=== PATIENT | male | born 1970 | race Caucasian/White ===

== ENCOUNTER 2020-03-02 05:44 | Inpatient (IN) ==
--- NOTE | 2020-02-16 11:02 | PAT Medication Instructions ---
Medication Instructions Date of Service February 16, 2020 Home Medications aspirin 81 mg PO HS bupropion HCl [Wellbutrin XL] 300 mg PO QAM cholecalciferol (vitamin D3) [Vitamin D3] 1,000 unit PO QAM cyanocobalamin (vitamin B-12) [Vitamin B-12] 1,000 mcg PO QAM cyclobenzaprine 10 mg PO TID gabapentin 600 mg PO TID insulin aspart U-100 [Novolog PenFill U-100 Insulin] 7 unit SUBCUT BIDM insulin glargine [Basaglar KwikPen U-100 Insulin] 60 unit SUBCUT QAM levothyroxine [Synthroid] 25 mcg PO QAM losartan 25 mg PO QAM meloxicam 15 mg PO QAM metoprolol succinate 12.5 mg PO BID multivitamin 1 cap PO QAM pantoprazole [Protonix] 40 mg PO HS pregabalin [Lyrica] 75 mg PO TID rivaroxaban [Xarelto] 20 mg PO PM rosuvastatin [Crestor] 40 mg PO HS insulin glargine [Basaglar KwikPen U-100 Insulin] 25 unit SUBCUT QPM trazodone 100 mg PO HS semaglutide [Ozempic] 0.5 mg SUBCUT WK sucralfate [Carafate] 10 ml PO TID Continue as directed semaglutide [Ozempic] 0.5 mg SUBCUT WK (just do not take AM of surgery) ASK your surgeon for instructions meloxicam 15 mg PO QAM ASK your prescriber and surgeon rivaroxaban [Xarelto] 20 mg PO PM aspirin 81 mg PO HS DO NOT take the morning of surgery sucralfate [Carafate] 10 ml PO TID losartan 25 mg PO QAM multivitamin 1 cap PO QAM cholecalciferol (vitamin D3) [Vitamin D3] 1,000 unit PO QAM cyanocobalamin (vitamin B-12) [Vitamin B-12] 1,000 mcg PO QAM cyclobenzaprine 10 mg PO TID insulin aspart U-100 [Novolog PenFill U-100 Insulin] 7 unit SUBCUT BIDM Take morning of surgery With a small sip of water, OTHERWISE NOTHING TO EAT OR DRINK AFTER MIDNIGHT: metoprolol succinate 12.5 mg PO BID pregabalin [Lyrica] 75 mg PO TID bupropion HCl [Wellbutrin XL] 300 mg PO QAM gabapentin 600 mg PO TID levothyroxine [Synthroid] 25 mcg PO QAM Take evening before surgery sucralfate [Carafate] 10 ml PO TID pantoprazole [Protonix] 40 mg PO HS pregabalin [Lyrica] 75 mg PO TID rosuvastatin [Crestor] 40 mg PO HS insulin glargine [Basaglar KwikPen U-100 Insulin] 25 unit SUBCUT QPM trazodone 100 mg PO HS cyclobenzaprine 10 mg PO TID gabapentin 600 mg PO TID insulin aspart U-100 [Novolog PenFill U-100 Insulin] 7 unit SUBCUT BIDM Insulin Dependent Diabetic Patients * Test your blood sugar the morning of surgery * If Blood Sugar is GREATER THAN 150, take HALF of your regular dose of: insulin glargine [Basaglar KwikPen U-100 Insulin] (30 units) * If Blood Sugar is LESS THAN 150, DO NOT TAKE ANY: insulin glargine [Basaglar KwikPen U-100 Insulin] 60 unit SUBCUT QAM Other Notes If you have any questions please call us at [phone] or [phone] or [phone] or [phone]
--- NOTE | 2020-02-17 10:23 | Anesthesiology Consultation ---
Date of Service February 17, 2020 Assessment & Plan (1) Encounter for pre-operative examination: Chart Review Chart Review: Acceptable Risk for Surgery (pending Covid testing ) and Patient seen in Pre Admission Testing - Check BSG AM DOS Per PAT appt 02/17/20, no travel to high risk/endemic areas. Educated on getting Covid order three days prior- given copy of surgeon order. Pt educated on importance of social distancing, self quarantining and wearing a mask if needs to go into public. Teaching & Discussion Pre-Anesthesia Teaching/Discussion Notes: Instructed NPO after midnight before surgery,except medications with 15 cc of water. Medication instructions provided according to the PAT guidelines. History Surgery Operation Date: 03/02/20 10:25 Proposed Procedures p C5-C6 Anterior Cervical Discectomy Fusion, Spinal Cord Monitoring - Carson Thompson DO Height/Weight Height: 6 ft Weight: 133.9 kg Allergies Allergy/AdvReac Type Severity Reaction Status Date / Time risperidone Allergy Severe TONGUE Verified 02/11/20 08:53 SWELLING. Medications Home Medications Medication Instructions Recorded Confirmed Last Taken aspirin 81 mg PO HS 08/03/19 02/11/20 08/20/19 22:00 bupropion HCl [Wellbutrin XL] 300 mg PO QAM 08/03/19 02/11/20 08/21/19 05:00 cholecalciferol (vitamin D3) 1,000 unit PO QAM 08/03/19 02/11/20 08/20/19 08:00 [Vitamin D3] cyanocobalamin (vitamin B-12) 1,000 mcg PO QAM 08/03/19 02/11/20 08/20/19 08:00 [Vitamin B-12] cyclobenzaprine 10 mg PO TID 08/03/19 02/11/20 08/20/19 22:00 gabapentin 600 mg PO TID 08/03/19 02/11/20 08/21/19 05:00 insulin aspart U-100 [Novolog 7 unit SUBCUT BIDM 08/03/19 02/11/20 08/20/19 18:00 PenFill U-100 Insulin] insulin glargine [Basaglar KwikPen 65 unit SUBCUT QAM 08/03/19 02/17/20 08/20/19 08:00 U-100 Insulin] levothyroxine [Synthroid] 25 mcg PO QAM 08/03/19 02/11/20 08/21/19 05:00 losartan 25 mg PO QAM 08/03/19 02/11/20 08/20/19 08:00 meloxicam 15 mg PO QAM 08/03/19 02/11/20 08/20/19 08:00 metoprolol succinate 12.5 mg PO BID 08/03/19 02/11/20 08/20/19 22:00 multivitamin 1 cap PO QAM 08/03/19 02/11/20 08/20/19 08:00 pantoprazole [Protonix] 40 mg PO DAILY 08/03/19 02/17/20 08/20/19 22:00 pregabalin [Lyrica] 75 mg PO TID 08/03/19 02/11/20 08/21/19 05:00 rivaroxaban [Xarelto] 20 mg PO PM 08/03/19 02/11/20 08/16/19 rosuvastatin [Crestor] 40 mg PO HS 08/03/19 02/11/20 08/20/19 22:00 insulin glargine [Basaglar KwikPen 60 unit SUBCUT QPM 11/04/19 02/17/20 Unknown U-100 Insulin] trazodone 100 mg PO HS 11/04/19 02/11/20 Unknown semaglutide [Ozempic] 0.5 mg SUBCUT WK 02/11/20 02/11/20 Unknown sucralfate [Carafate] 10 ml PO TID 02/11/20 02/11/20 Unknown Iron Supplement 02/17/20 Unknown ascorbic acid (vitamin C) See Rx Instructions .ROUTE .COMPLEX 02/17/20 02/17/20 Unknown fluvoxamine 100 mg PO HS 02/17/20 02/17/20 Unknown hydroxyzine pamoate [Vistaril] 50 mg PO BID 02/17/20 02/17/20 Unknown Past Medical History Medical History Anemia on iron supplements Anxiety Asthma Uses ProAir once/week. Prescribed Advair but cannot afford it due to insurance issue. Stable and controlled Bipolar disorder Chronic obstructive pulmonary disease Stable and controlled CVA (cerebral vascular accident) 2007 - MEMORY ISSUES- FOLLOWS WITH PCP Depression Diabetes mellitus, type 2 Improved GERD (gastroesophageal reflux disease) WELL CONTROLLED AND STABLE Glaucoma History of DVT (deep vein thrombosis) 2010 - RLE - ON XARELTO - UNK CAUSE - NO ISSUES SINCE ON XARELTO History of pulmonary embolism 2010 - ON XARELTO - NO ISSUES SINCE ON XARELTO Hyperlipidemia Hypertension Hypothyroidism Osteoarthritis Sleep apnea CPAP Spinal stenosis Exercise / Class Metabolic Activity II 4-5 Yardwork/Stairs/Walk up hill (one flight stairs - no chest pain or SOB ) Past Family History Family History Mother Family history of diabetes mellitus Sister Family history of diabetes mellitus Brother Family hx of colon cancer Past Surgical History Surgical History History of arthroscopy of shoulder BL History of cardiac cath 2014 - [facility] [place] - NO STENTS 2009 - [place] - NO STENTS History of cholecystectomy History of colonoscopy History of esophagogastroduodenoscopy (EGD) History of gastric bypass History of lumbar surgery 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 History of umbilical hernia repair History of uvulopalatopharyngoplasty Hx of nasal septoplasty Past Anesthesia History No Hx of Anesthesia Complications and No Family Hx of Anesthesia Complications History of PONV No Hx of PONV and No Hx of Motion Sickness Social History Smoking Status: Former smoker tobacco type: cigarettes Smoking cigarettes per day: h/o 1ppd Do You Dip or Chew Tobacco: No Smoking End Date: 2-3 years ago Hx Alcohol Use: No Hx Substance Use: No substance use type: does not use Review of Systems Chronic chest tightness x years secondary to asthma Patient denies chest pain, shortness of breath, dyspnea on exertion, cough, wheezing, palpitations. No hx of seizures, [place]. . No hx of blood transfusions Physical Exam Vital Signs VITALS BP 125/85 P 90 TEMP 97.7 SP02 96% RESP 16 Constitutional + morbidly obese; no acute distress ENMT Mouth: no TMJ clicking Thyromental Distance: > or= 3.5 Finger Breadths (3.5) Mallampati Class: I Full dentures top and bottom Did instruct patient to shave facial hair Neck + short neck, + thick neck and + limited neck extension Respiratory normal respiratory effort; no respiratory distress Auscultation: lungs clear to auscultation bilaterally; no wheezes Cardiovascular Rate/Rhythm: regular rate and regular rhythm Heart Sounds: no murmur Vessels: no carotid bruit Musculoskeletal Spine: + pain with cervical ROM Neurologic moves all extremities Psychiatric Orientation: alert Testing Laboratory Results 02/17/20 10:36 02/17/20 12:02 PT 12.4 Seconds (9.0-12.0) H 02/17/20 10:36 INR 1.2 (0.9-1.1) H 02/17/20 10:36 APTT 31.5 Seconds (21.0-31.0) H 02/17/20 10:36 Hemoglobin A1c 7.3 % (4.5-5.6) H 02/17/20 10:36 Urine Color Dark Yellow 02/17/20 10:36 Urine Appearance Clear (Clear) 02/17/20 10:36 Urine pH 5.5 (4.5-7.5) 02/17/20 10:36 Ur Specific [place] 1.026 (1.000-1.030) 02/17/20 10:36 Urine Protein Negative (Negative) 02/17/20 10:36 Urine Glucose (UA) Negative (Negative) 02/17/20 10:36 Urine Ketones Trace (Negative) H 02/17/20 10:36 Urine Nitrite Negative (Negative) 02/17/20 10:36 Ur Leukocyte Esterase Negative (Negative) 02/17/20 10:36 Blood Type A Positive 02/17/20 10:36 Antibody Screen NEGATIVE 02/17/20 10:36 Electrocardiogram Date: 08/06/19 Findings: + NSR @ (74) Chest X-Ray Date: 07/08/19 Findings: + NAD Echocardiogram Date: 06/23/18 EF: 55% LV Function: normal Other Findings: + LVH (mild/concentric ) Valvular Disease: + no significant valvular disease LA- mildly dilated. Stress Test Date: 06/23/18 Type: nuclear Lexiscan EKG negative for myocardial ischemia. No significant rest or stress- induced myocardial perfusion defects. No evidence of myocardial ischemia or infarct. Normal gated MPI wall motion and low normal EF. LVEF =48%.
[2020-02-17 11:01] LABS: Basophils # (auto) 0.02 K/uL (0-0.2); Basophils % (auto) 0.3 %; Eosinophils # (auto) 0.08 K/uL (0-0.5); Eosinophils % (auto) 1.2 %; Hemoglobin 17.1 g/dL (14.0-18.0); Immature Granulocytes # (auto) 0.01 K/uL (0.00-0.02); Immature Granulocytes % (auto) 0.1 %; Lymphocytes # (auto) 2.13 K/uL (1.2-3.4); Lymphocytes % (auto) 31.6 %; Mean Corpuscular Hemoglobin 31.6 pg (25-34); Mean Corpuscular Hgb Conc 35.6 g/dL (32-36); Mean Corpuscular Volume 88.7 fL (80-100); Mean Platelet Volume 10.2 fL (7.4-10.4); Monocytes % (auto) 8.9 %; Neutrophils % (auto) 57.9 %; Platelet Count 176 K/uL (130-400); RDW Coefficient of Variation 12.4 % (11.5-14.5); RDW Standard Deviation 39.5 fL (36.4-46.3); Red Blood Count 5.41 M/uL (4.7-6.1); White Blood Count 6.74 K/uL (4.8-10.8)
[2020-02-17 11:07] LABS: Appearance Urine Clear (Clear); Bilirubin Urine Negative (Negative); Blood Urine Negative (Negative); Color Urine Dark Yellow; Glucose Urine UA Negative (Negative); Ketones Urine Trace (Negative); Leukocyte Esterase Urine Negative (Negative); Nitrite Urine Negative (Negative); Protein Urine Negative (Negative); Specific Gravity Urine 1.026 (1.000-1.030); Urobilinogen Urine Positive (Negative); pH Urine 5.5 (4.5-7.5)
[2020-02-17 11:19] LABS: INR 1.2 (0.9-1.1); Partial Thromboplastin Ratio 1.1; Partial Thromboplastin Time 31.5 Seconds (21.0-31.0); Prothrombin Time 12.4 Seconds (9.0-12.0)
[2020-02-17 12:36] LABS: Estimated Average Glucose 163 mg/dl; Hemoglobin A1C 7.3 % (4.5-5.6)
[2020-02-17 13:58] LABS: BUN Creatinine Ratio 10.7 (10-20); Calcium 9.2 mg/dl (8.5-10.1); Creatinine Clr Calc Pharmacy 113.5 ml/min; Est GFR (African American) 90.6; Est GFR (Non-African American) 78.2; Potassium 4.3 mmol/L (3.5-5.1)
[2020-03-02] MEDS ORDERED: CeleBREX 200 MG CAP PO SCH (06:00)
[2020-03-02] MEDS ORDERED: LR 15ML/HR IV SCH (06:00)
[2020-03-02] MEDS ORDERED: ACETAMINOPHEN 500 MG TAB PO SCH (06:00)
[2020-03-02] MEDS ORDERED: GABAPENTIN 900 MG DOSE PO SCH (06:00)
[2020-03-02] MEDS ORDERED: CEFAZOLIN 3000MG 72.5 ML IV SCH (06:00)
[2020-03-02] MEDS ORDERED: HYDROmorphone INJ 2 MG/ML SYR/VIAL ONE (07:03)
[2020-03-02] MEDS ORDERED: ONDANSETRON INJ 2 MG/ML 2 ML VIAL ONE (07:03)
[2020-03-02] MEDS ORDERED: fentaNYL citrate 100 MCG/2 ML VIAL ONE (07:03)
[2020-03-02] MEDS ORDERED: MIDAZOLAM HCL 1 MG/ML 2ML VIAL ONE (07:03)
[2020-03-02] MEDS ORDERED: LIDOCAINE HCL 2% 2 ML VIAL/AMP(20MG/ML) INFIL ONE (07:03)
[2020-03-02] MEDS ORDERED: PROPOFOL IV EMULSION 10 MG/ML 20 ML VIAL IV ONE (07:03)
[2020-03-02] MEDS ORDERED: BACITRACIN INJ 50,000 UNIT VIAL ONE (07:15)
--- NOTE | 2020-03-02 07:30 | History & Physical Bridge Note ---
Date of Service March 02, 2020 History & Physical Bridge Note I have examined the patient, reviewed the History & Physical and in the interval since the performance of the History & Physical I have noted the following changes of clinical significance: no changes noted
--- NOTE | 2020-03-02 07:31 | History & Physical Report ---
Date of Service March 02, 2020 Assessment & Plan (1) Cervical stenosis of spinal canal: C5-C6 anterior cervical discectomy and fusion Present on Admission?: Yes History of Present Illness Chief Complaint: Neck and arm pain Primary Care Provider: Marco A Lira DO This is a 49-year-old male who presents with chronic persistent neck and arm pain after failing course of nonoperative care is here for surgical intervention. Allergies Allergy/AdvReac Type Severity Reaction Status Date / Time risperidone Allergy Severe TONGUE Verified 03/02/20 06:04 SWELLING. Home Medications Home Medications Medication Instructions Recorded Confirmed Type aspirin 81 mg PO HS 08/03/19 03/02/20 History bupropion HCl [Wellbutrin XL] 300 mg PO QAM 08/03/19 03/02/20 History cholecalciferol (vitamin D3) 1,000 unit PO QAM 08/03/19 03/02/20 History [Vitamin D3] cyanocobalamin (vitamin B-12) 1,000 mcg PO QAM 08/03/19 03/02/20 History [Vitamin B-12] cyclobenzaprine 10 mg PO TID 08/03/19 03/02/20 History gabapentin 600 mg PO TID 08/03/19 03/02/20 History insulin aspart U-100 [Novolog 7 unit SUBCUT BIDM 08/03/19 03/02/20 History PenFill U-100 Insulin] insulin glargine [Basaglar KwikPen 65 unit SUBCUT QAM 08/03/19 03/02/20 History U-100 Insulin] levothyroxine [Synthroid] 25 mcg PO QAM 08/03/19 03/02/20 History losartan 25 mg PO QAM 08/03/19 03/02/20 History meloxicam 15 mg PO QAM 08/03/19 03/02/20 History metoprolol succinate 12.5 mg PO BID 08/03/19 03/02/20 History multivitamin 1 cap PO QAM 08/03/19 03/02/20 History pantoprazole [Protonix] 40 mg PO DAILY 08/03/19 03/02/20 History pregabalin [Lyrica] 75 mg PO TID 08/03/19 03/02/20 History rivaroxaban [Xarelto] 20 mg PO PM 08/03/19 03/02/20 History rosuvastatin [Crestor] 40 mg PO HS 08/03/19 03/02/20 History insulin glargine [Basaglar KwikPen 60 unit SUBCUT QPM 11/04/19 03/02/20 History U-100 Insulin] trazodone 100 mg PO HS 11/04/19 03/02/20 History semaglutide [Ozempic] 0.5 mg SUBCUT WK 02/11/20 03/02/20 History sucralfate [Carafate] 10 ml PO TID 02/11/20 03/02/20 History Iron Supplement 02/17/20 History ascorbic acid (vitamin C) See Rx Instructions .ROUTE .COMPLEX 02/17/20 03/02/20 History fluvoxamine 100 mg PO HS 02/17/20 03/02/20 History hydroxyzine pamoate [Vistaril] 50 mg PO BID 02/17/20 03/02/20 History Past Med/Surg History Medical History Anemia on iron supplements Anxiety Asthma Uses ProAir once/week. Prescribed Advair but cannot afford it due to insurance issue. Stable and controlled Bipolar disorder Chronic obstructive pulmonary disease Stable and controlled CVA (cerebral vascular accident) 2007 - MEMORY ISSUES- FOLLOWS WITH PCP Depression Diabetes mellitus, type 2 Improved GERD (gastroesophageal reflux disease) WELL CONTROLLED AND STABLE Glaucoma History of DVT (deep vein thrombosis) 2010 - RLE - ON XARELTO - UNK CAUSE - NO ISSUES SINCE ON XARELTO History of pulmonary embolism 2010 - ON XARELTO - NO ISSUES SINCE ON XARELTO Hyperlipidemia Hypertension Hypothyroidism Osteoarthritis Sleep apnea CPAP Spinal stenosis Surgical History History of arthroscopy of shoulder BL History of cardiac cath 2015 - [facility] [place] - NO STENTS 2009 - [place] - [place] STENTS History of cholecystectomy History of colonoscopy History of esophagogastroduodenoscopy (EGD) History of gastric bypass History of lumbar surgery 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 History of umbilical hernia repair History of uvulopalatopharyngoplasty Hx of nasal septoplasty Family History Mother Family history of diabetes mellitus Sister Family history of diabetes mellitus Brother Family hx of colon cancer Social History Preferred Language: Belarusian Communication Ability: Effective Real Estate Developer Required: No Beliefs That Will Affect Care: None Current Living Situation: Spouse Feels Safe at Home: Yes Safety Concerns: Feels Safe At This Time Smoking Status: Former smoker Tobacco Type: cigarettes ; Cigarettes Per Day: h/o 1ppd ; Do You Dip or Chew Tobacco: No ; Smoking End Date: 2-3 years ago ; Second Hand Exposure: No ; Tobacco Cessation Education Requested by Patient: No Hx Alcohol Use: No Hx Substance Use: No Physical Exam Physical Exam: Patient is alert and oriented neurologically intact. Heart regular rate and rhythm. Lungs clear to auscultation. Results & Data Vital Signs (Past 12 Hours) Vital Signs Temp Pulse Resp BP Pulse Ox 03/02/20 06:13 36.6 C 86 18 125/83 99
[2020-03-02] MEDS ORDERED: HYDROmorphone INJ 1 MG/ML SYRINGE IV PRN ×2 (07:52→11:03)
[2020-03-02] MEDS ORDERED: ATROPINE SULFATE 0.1 MG/ML 10ML SYR IV PRN (07:52)
[2020-03-02] MEDS ORDERED: ONDANSETRON INJ 2 MG/ML 2 ML VIAL IV PRN ×2 (07:52→11:03)
[2020-03-02] MEDS ORDERED: ePHEDrine sulfate 50 MG/ML AMP IV PRN (07:52)
[2020-03-02] MEDS ORDERED: fentaNYL citrate 100 MCG/2 ML VIAL IV PRN (07:52)
[2020-03-02] MEDS ORDERED: FLOSEAL HEMOSTATIC MATRIX 10ML TOP ONE (09:02)
--- NOTE | 2020-03-02 09:13 | Operative Report ---
Post Operative Report Pre & Post Diagnosis Operation Date: 03/02/20 07:45 Pre-Op Diagnosis: Cervical Spinal Stenosis Post-Op Diagnosis: Cervical Spinal Stenosis I identified the patient and participated in the time-out.: Yes Procedure Operation Date: 03/02/20 07:45 Actual Procedures #1 anterior cervical discectomy with bilateral foraminotomies C5-C6. #2 anterior cervical arthrodesis C5-C6. #3 placement of Spira titanium cage 8 mm height filled with DBM at C5-C6. #4 application of menendez plate and screws across C5-C6. Surgeon Carson Thompson, DO Regional Sales Coordinator Payal Soto Estimated Blood Loss 10 Findings See Below The patient is 6 foot 1 inches tall weighing over 131 kg with a BMI of 38.5. The patient's body habitus did create significant technical difficulty throughout the procedure including positioning exposure and the procedure itself adding at least 50% increase to the operative time. Specimens None Indications This is a 49-year-old male who presents with above-mentioned diagnosis after failing extensive course of nonoperative care is here for the above-mentioned procedure. Description of Procedure Patient was met with preoperatively case discussed all questions addressed at that point patient was taken back to the operative suite underwent intubation placed in supine position Dawood table head [place] head ordered. All bony prominences well-padded eyes inspected to ensure no external pressure placed upon the. This point the anterior cervical spine was prepped and draped in normal sterile fashion. With the assistance of fluoroscopy identified the C5-C6 level and a transverse incision was placed along the right anterior aspect of the cervical spine overlying this region. Sharp dissection with assistance of bipolar electrocautery was performed down to and exposing the anterior cervical spine and C5-C6. Self-retaining retractors placed. Then performed a complete discectomy at C5-6 out to the uncovertebral joints bilaterally. [place] distracting pins were used to assist in visualization. I removed all posterior annular fibers longitudinal ligament bilateral foraminotomies performed for complete decompression. The endplates were then burred to subcortical any bone and an 8 mm titanium spiral cage filled with DBM tapped in position. Distracting apparatus was removed and a menendez plate and screws applied with the assistance of fluoroscopy. The incision was then copiously irrigated to explore no damage surrounding structures remaining bleeding. A 10 round OLGA drain inserted. The incision was then closed with 2-0 Vicryl in a fashion of 4 Monocryl for final skin closure. Steri-Strips sterile dressing placed. Patient waken taken PACU stable addition. Please note Payal Soto was present at the entire procedure involved the patient positioning complex portions of the surgery and final skin closure. Lastly spinal cord monitoring was utilized that the procedure no changes noted. I attest to the content of the Intraoperative Record and any orders documented therein. Any exceptions are noted below.
--- NOTE | 2020-03-02 09:27 | Fluoroscopy Report ---
FL cervical 2-3V CLINICAL HISTORY: ACDF C5-C6 COMPARISON STUDY: None. FLUOROSCOPY TIME: 12 seconds. FINDINGS: 2 fluoroscopic spot images of the cervical spine demonstrate anterior cervical discectomy a nd fusion at C5-C6. The hardware appears intact. An endotracheal tube is noted. IMPRESSION: Fluoroscopy provided for C5-C6 ACDF. ACT 112: Negative or not required by law. Electronically signed by: Ki Valencia M.D. 03/02/2020 9:25 AM
[2020-03-02] MEDS ORDERED: ROCURONIUM BROMIDE 10 MG/ML 5 ML VIAL IV ONE (09:36)
[2020-03-02] MEDS ORDERED: SUCCINYLCHOLINE CHLORIDE 20 MG/ML 10 ML VIAL IV ONE (09:36)
[2020-03-02] MEDS ORDERED: NEOSTIGMINE METHYLSULFATE 1 MG/ML 10ML VIAL ONE (09:41)
[2020-03-02] MEDS ORDERED: GLYCOPYRROLATE 0.2 MG/ML VIAL ONE (09:41)
--- NOTE | 2020-03-02 10:07 | Anesthesiology Progress Note ---
Date of Service March 02, 2020 Anesthesia Post Procedure Vital Signs Vital Signs: Temp Pulse Pulse Resp BP Pulse Ox 03/02/20 10:00 81 15 135/88 95 03/02/20 09:50 80 18 140/91 94 03/02/20 09:40 79 20 131/87 98 03/02/20 09:30 82 23 134/89 95 03/02/20 09:21 36 C L 83 13 148/89 H 94 03/02/20 06:13 36.6 C 86 18 125/83 99 Transfer of Care Handoff Completed per policy Notes Mental Status: alert / awake / arousable and participated in evaluation Patient Amnestic to Procedure: Yes Nausea / Vomiting: adequately controlled Pain: adequately controlled Airway Patency, RR, SpO2: stable & adequate BP & HR: stable & adequate Hydration State: stable & adequate Anesthetic Complications: no major complications apparent and Pt Satisfied with anesthetic care
[2020-03-02] MEDS ORDERED: TRAMADOL HCL 50 MG TABLET PO PRN (11:03)
[2020-03-02] MEDS ORDERED: DO NOT ADMINISTER FLU VACCINE PRN (11:03)
[2020-03-02] MEDS ORDERED: ALUMINUM/MAGNESIUM SUSP 30 ML UDC PO PRN (11:03)
[2020-03-02] MEDS ORDERED: NALOXONE HCL 0.4 MG/1 ML VIAL/CARP IV PRN (11:03)
[2020-03-02] MEDS ORDERED: DO NOT ADMINISTER PNEUMOCOCCAL VACCINE PRN (11:03)
[2020-03-02] MEDS ORDERED: SOD PHOSPHATE/SOD BIPHOSPHATE ENEMA 132 ML BTL PR PRN (11:03)
[2020-03-02] MEDS ORDERED: PROMETHAZINE HCL 12.5 MG in SODIUM CHLORIDE 0.9% 50 ML IV PRN (11:03)
[2020-03-02] MEDS ORDERED: HYDROmorphone INJ 0.5 MG/0.5 ML SYR IV PRN (11:03)
[2020-03-02] MEDS ORDERED: MAGNESIUM HYDROXIDE SUSP 30 ML UDC PO PRN (11:03)
[2020-03-02] MEDS ORDERED: RACEPINEPHRINE 2.25% NEBU SOLN 0.5 ML VIAL INH PRN (11:03)
[2020-03-02] MEDS ORDERED: DEXAMETHASONE SOD PHOSPHATE 8 MG in SYRINGE 0 ML IV PRN (11:03)
[2020-03-02] MEDS ORDERED: METOCLOPRAMIDE HCL INJ 5 MG/ML 2 ML VIAL IV PRN (11:03)
[2020-03-02] MEDS ORDERED: LORazepam 0.5 MG TAB PO PRN (11:03)
[2020-03-02] MEDS ORDERED: ONDANSETRON 4 MG OD TAB PO PRN (11:03)
[2020-03-02] MEDS ORDERED: FAMOTIDINE 20 MG TAB PO PRN (11:03)
[2020-03-02] MEDS ORDERED: LORazepam 0.5 MG/1 ML VIAL IV PRN (11:03)
[2020-03-02] MEDS ORDERED: PHARMACY GLYCEMIC MGMT CONSULT PRN (11:14)
[2020-03-02] MEDS ORDERED: INSULIN GLARGINE SOLOSTAR 100 UNITS/ML 3 ML PEN SC SCH ×2 (11:30→21:00)
--- NOTE | 2020-03-02 11:37 | Pharmacy Report ---
Pharmacy Glycemic Short Note 2 - Date of Service March 02, 2020 - Glycemic Short BSG Results (Last 24 hours): 03/02/20 03/02/20 06:05 09:24 POC Glucose 136 H 87 OUTPATIENT ANTIDIABETIC REGIMEN: * Basaglar 65 units SQ qAM, 60 units SQ qPM * Novolog TID with meals * 16 units with breakfast, 20 units with lunch, 25 units with dinner * HbA1c: 7.3% (02/17/20) ASSESSMENT: * Mr Mg is a 49yo diabetic male POD 0 s/p spinal procedure with Dr Thompson this morning. * It does not appear as though patient received any steroids intra-operatively. * Pt has been ordered a clear liquid diet post-op. PLAN FOR INPATIENT GLYCEMIC CONTROL: * Hold outpatient oral diabetes medications * Basal insulin * Lantus 50 units SQ BID * Bolus insulin * NovoLog per scale ACHS or Q6hrs while NPO * Goal Range: Low 110 mg/dL - High 140 mg/dL * Correction Factor: 10 mg/dL/unit * Nutritional / Prandial insulin per carb ratio of 1 unit per 4 grams CHO consumed PLAN FOR DISCHARGE: * Patient's A1c (7.3%) indicates adequate glycemic control as an outpatient. * Expect that pt may resume home regimen on discharge, as long as he does not report having episodes of hypoglycemia.
[2020-03-02] MEDS ORDERED: GLUCOSE 40% GEL 15 GM TUBE PO PRN (11:45)
[2020-03-02] MEDS ORDERED: CARBOHYDRATES FOR HYPOGLYCEMIA PO PRN (11:45)
[2020-03-02] MEDS ORDERED: GLUCOSE 10 TABS/TUBE PO PRN (11:45)
[2020-03-02] MEDS ORDERED: DEXTROSE 50% 50 ML SYRINGE IV PRN (11:45)
[2020-03-02] MEDS ORDERED: GLUCAGON FOR INJ 1 MG VIAL IM PRN (11:45)
--- NOTE | 2020-03-02 12:01 | Consultation ---
Date of Consultation March 02, 2020 Assessment & Plan (1) S/P spinal surgery: Post op day# 0 S/P ACDF C5-C6 by Dr Thompson Post op pain controlled EBL#10ml -pain management per ortho -wound management per ortho -PT/OT as appropriate -DVT prophylaxis per ortho -bowel regimen -monitor H&H for acute blood loss anemia; pre-op Hgb: 17 (2) Hypertension: -Continue losartan with holding parameters (3) History of pulmonary embolism: HISTORY OF DEEP VEIN THROMBOSIS H/O DVT and PE in 2010. On Xarelto since Xarelto on hold 5 days pre-op -No SOB, CP, LE pain or edema reported -Hold Xarelto at this time -follow ultrasound of lower extremities (4) Diabetes mellitus, type 2: A1c: 7.3 on 02/17/2020. Follows with endocrinology -Hold home insulin and ozempic -BS -Basal bolus insulin. Glycemic pharmacy on board, appreciate assistance with management -Pt currently on liquid diet, monitor BSGs closely (5) Hyperlipidemia: -Continue statin (6) Hypothyroidism: -Continue levothyroxine (7) Sleep apnea: CPAP HS -Will continue CPAP HS per ortho spine recommendations (8) Depression: Anxiety -Continue buspirone, fluvoxamine (9) Obesity: BMI: 38. S/P gastric bypass in 2012 DVT Prophylaxis -SCDs Disposition per primary service Follows with Dr Marco A Lira in [place], [place] for routine care Pt was seen and care coordinated with Dr Liz. See addendum Pt will be followed by Dr Marquez starting 03/03/2020 Thank you for this consultation. We will follow the patient with you during their hospital stay. You can reach a member of the [facility] Hospitalist Team 25/03 via pager @ [phone]. Supervising Physician Co-Signing Physician Notes I, Dr. Nahun Liz, have seen and examined the patient Beny Ortegaison with physician certified surgical assistant and would like to comment on exam Physical Exam General: speaking in full sentences Neck: in brace with OLGA drain of anterior neck with some blood collection in the drain Pulmonary: no crackles appreciated on anterior auscultation or wheezing, on room air Cardiac: regular rate Abdomen: soft, nontender Extremities/Neurological: moves all extremities, he reports left foot to left ankle numbness but that these symptoms have been chronic and present even before the surgery Assessment and Plans -This is an initial medicine consult for a patient under Dr. Thompson of general surgery and has pre-op diagnosis of Cervical Spinal Stenosis is s/p cervical spine surgery (anterior cervical discectomy with bilateral foraminotomies C5-C6. anterior cervical arthrodesis C5-C6. placement of Spira titanium cage 8 mm height filled with DBM at C5-C6. #4 application of menendez plate and screws across C5-C6.) -as per operative report The patient's body habitus did create significant technical difficulty throughout the procedure -however, no apparent acute intra-operative events, and patient is generally well in appearance with neck brace and OLGA drain from anterior neck. 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 pharmacy glycemic consult is involved and we advised them avoid tight insulin control for now to prevent hypoglycemia because of generally liquid diet -patient also stopped Xarelto at least 5 days before surgery. He reports that he has been taking Xarelto since 2009 because of history of deep vein thrombosis and pulmonary embolism. We will not advise Xarelto for immediate resumption because of the neck surgery with OLGA drain collecting blood and also because the history of DVT and PE are distant. Can consider resuming Xarelto later in hospital stay or after discharge -patient agreed for venous ultrasound of lower extremities to be performed to rule out any chronic or acute DVT -agree with other assessment and plans as documented by physician certified surgical assistant -My colleague Dr. Marquez will be the hospitalist medicine consult starting on 03/03/2020 History of Present Illness Requesting Physician: Dr Thompson Reason for Consultation: Post op medical management Attending Physician: Carson Thompson, DO History of Present Illness Pt is 49 y/o M with PMH HTN, HLD, insulin dependent DM II, hypothyroidism, BPH, GERD, obesity, h/o gastric bypass 2012, sleep apnea, h/o DVT & PE in 2010 on Xarelto seen in medical consultation s/p ACDF C5-C6 today by Dr Thompson. Pt states post op pain controlled. Denies any upper extremity pain or paresthesias. Reports prior to surgery with bilateral foot paresthesias which are same post op. Drinking water without difficulty or choking. Denies N/V. Denies fever/chills, diaphoresis, CARRERA, dizziness, syncope, vision changes, CP, SOB, abdominal pain, extremity weakness, rashes, urinary symptoms. Allergies Allergy/AdvReac Type Severity Reaction Status Date / Time risperidone Allergy Severe TONGUE Verified 03/02/20 06:04 SWELLING. Home Medications Home Medications Medication Instructions Recorded Confirmed Type aspirin 81 mg PO HS 08/03/19 03/02/20 History bupropion HCl [Wellbutrin XL] 300 mg PO QAM 08/03/19 03/02/20 History cholecalciferol (vitamin D3) 1,000 unit PO QAM 08/03/19 03/02/20 History [Vitamin D3] cyanocobalamin (vitamin B-12) 1,000 mcg PO QAM 08/03/19 03/02/20 History [Vitamin B-12] cyclobenzaprine 10 mg PO TID 08/03/19 03/02/20 History gabapentin 600 mg PO TID 08/03/19 03/02/20 History insulin aspart U-100 [Novolog 7 unit SUBCUT BIDM 08/03/19 03/02/20 History PenFill U-100 Insulin] insulin glargine [Basaglar KwikPen 65 unit SUBCUT QAM 08/03/19 03/02/20 History U-100 Insulin] levothyroxine [Synthroid] 25 mcg PO QAM 08/03/19 03/02/20 History losartan 25 mg PO QAM 08/03/19 03/02/20 History meloxicam 15 mg PO QAM 08/03/19 03/02/20 History metoprolol succinate 12.5 mg PO BID 08/03/19 03/02/20 History multivitamin 1 cap PO QAM 08/03/19 03/02/20 History pantoprazole [Protonix] 40 mg PO DAILY 08/03/19 03/02/20 History pregabalin [Lyrica] 75 mg PO TID 08/03/19 03/02/20 History rivaroxaban [Xarelto] 20 mg PO PM 08/03/19 03/02/20 History rosuvastatin [Crestor] 40 mg PO HS 08/03/19 03/02/20 History insulin glargine [Basaglar KwikPen 60 unit SUBCUT QPM 11/04/19 03/02/20 History U-100 Insulin] trazodone 100 mg PO HS 11/04/19 03/02/20 History semaglutide [Ozempic] 0.5 mg SUBCUT WK 02/11/20 03/02/20 History sucralfate [Carafate] 10 ml PO TID 02/11/20 03/02/20 History Iron Supplement 02/17/20 History ascorbic acid (vitamin C) See Rx Instructions .ROUTE .COMPLEX 02/17/20 03/02/20 History fluvoxamine 100 mg PO HS 02/17/20 03/02/20 History hydroxyzine pamoate [Vistaril] 50 mg PO BID 02/17/20 03/02/20 History oxycodone 5 mg PO Q6H PRN #14 tab 03/02/20 Rx Patient History Medical History Anemia on iron supplements Anxiety Asthma Uses ProAir once/week. Prescribed Advair but cannot afford it due to insurance issue. Stable and controlled Bipolar disorder Chronic obstructive pulmonary disease Stable and controlled CVA (cerebral vascular accident) 2007 - MEMORY ISSUES- FOLLOWS WITH PCP Depression Diabetes mellitus, type 2 Improved GERD (gastroesophageal reflux disease) WELL CONTROLLED AND STABLE Glaucoma History of DVT (deep vein thrombosis) 2010 - RLE - ON XARELTO - UNK CAUSE - NO ISSUES SINCE ON XARELTO History of pulmonary embolism 2010 - ON XARELTO - NO ISSUES SINCE ON XARELTO Hyperlipidemia Hypertension Hypothyroidism Osteoarthritis Sleep apnea CPAP Spinal stenosis Surgical History History of arthroscopy of shoulder BL History of cardiac cath 2014 - 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 History of umbilical hernia repair History of uvulopalatopharyngoplasty Hx of nasal septoplasty Family History Mother Family history of diabetes mellitus Sister Family history of diabetes mellitus Brother Family hx of colon cancer Social History (Reviewed 03/02/20 @ 12:13 by DWAYNE Ngo Preferred Language: Belizean Communication Ability: Effective Planning Analyst Required: No Beliefs That Will Affect Care: None Current Living Situation: Spouse Feels Safe at Home: Yes Safety Concerns: Feels Safe At This Time Smoking Status: Former smoker Tobacco Type: cigarettes ; Cigarettes Per Day: h/o 1ppd ; Do You Dip or Chew Tobacco: No ; Smoking End Date: 2-3 years ago ; Second Hand Exposure: No ; Tobacco Cessation Education Requested by Patient: No Hx Alcohol Use: No Hx Substance Use: No Review of Systems Review of Systems: All systems reviewed & are unremarkable except as noted in HPI & below Physical Exam Physical Exam: General: no distress, obese Head: normocephalic, atraumatic Eyes: conjunctiva non-injected, anicteric ENT: normal inspection external ears, nose, mucous membranes moist Neck: trachea midline, C- collar in place, anterior neck with dressing in place and is dry, OLGA drain in place with slight serosanguineous drainage Lungs: clear, no respiratory distress, no wheezing/rhonchi/rales CV: RRR, no murmur, no pretibial edema Abd: normal BS, soft, non-tender Ext: no cyanosis, no calf tenderness, active ROM of bilateral upper arms, pedal pushes and pulls intact bilaterally, sensation to light touch intact upper and lower extremities Neuro: A&O x 3, no focal deficits noted, normal affect Skin: warm, dry Results & Data ([facility]) Vital Signs (Past 12 Hours) Vital Signs Temp Pulse Pulse Resp BP Pulse Ox 03/02/20 11:25 81 20 112/75 96 03/02/20 11:03 82 16 95 03/02/20 10:55 36.5 C 82 18 113/72 96 03/02/20 10:45 79 12 126/82 96 03/02/20 10:30 79 12 132/85 97 03/02/20 10:20 36.2 C L 79 13 125/88 96 03/02/20 10:10 81 11 L 125/90 95 03/02/20 10:00 81 15 135/88 95 03/02/20 09:50 80 18 140/91 94 03/02/20 09:40 79 20 131/87 98 03/02/20 09:30 82 23 134/89 95 03/02/20 09:21 36 C L 83 13 148/89 H 94 03/02/20 06:13 36.6 C 86 18 125/83 99
[2020-03-02] MEDS: SODIUM CHLORIDE 0.9% 1000ML 1,000 ML IV SCH ×2 (12:41→18:47)
[2020-03-02] MEDS: SUCRALFATE 1 GM/10 ML UDC PO SCH ×2 (12:56→20:14)
[2020-03-02] MEDS: GABAPENTIN 300 MG CAP PO SCH ×2 (12:57→20:15)
[2020-03-02] MEDS: CYCLOBENZAPRINE HCL 10 MG TAB PO SCH ×2 (12:57→20:16)
[2020-03-02] MEDS: INSULIN ASPART 100 UNITS/ML 3 ML PEN SC SCH ×3 (12:59→21:36)
[2020-03-02] MEDS: PREGABALIN 75 MG CAP PO SCH ×2 (13:04→20:14)
--- NOTE | 2020-03-02 13:38 | Ultrasound Report ---
ULTRASOUND BILATERAL LOWER EXTREMITY VENOUS CLINICAL HISTORY: Recent surgery. History of deep venous thrombosis. COMPARISON STUDY: No priors. TECHNIQUE: Real-time, grayscale, and color Doppler sonography of the deep veins of the right and left lower extremity was performed from the inguinal crease to the calf. Compression and augmentation wer e utilized. FINDINGS: There is no sonographic evidence of deep venous thrombosis identified in the right or left lower extremity. The common femoral, superficial femoral, and popliteal veins are patent and normally compressible bilaterally. The greater saphenous vein and the profunda femoris vein at the junction w ith the common femoral vein are clear in both legs. The visualized calf veins are patent bilaterally. IMPRESSION: There is no sonographic evidence of deep venous thrombosis identified in the right or lef t lower extremity. ACT 112: Negative or not required by law. Electronically signed by: Horace Carreno M.D. 03/02/2020 1:37 PM
[2020-03-02] MEDS ORDERED: ACETAMINOPHEN 500 MG TAB PO PRN (14:00)
[2020-03-02] MEDS ORDERED: ACETAMINOPHEN 1,000 MG/100 ML VIAL IV PRN (14:00)
[2020-03-02] MEDS: CEFAZOLIN 2000MG 2,000 MG/15 ML SYR IV SCH ×2 (15:34→23:51)
[2020-03-02] MEDS: OXYCODONE HCL IR 5 MG TAB (IMMEDIATE RELEASE) PO PRN ×2 (17:02→18:11)
[2020-03-02] MEDS: METOPROLOL SUCC 25MG EXT REL TAB PO SCH (20:15)
[2020-03-02] MEDS ORDERED: ROSUVASTATIN CALCIUM 20 MG TAB PO SCH (21:00)
[2020-03-02] MEDS ORDERED: FLUVOXAMINE MALEATE 50 MG TAB PO SCH (21:00)
[2020-03-02] MEDS ORDERED: DOCUSATE SODIUM/SENNA 50/8.6MG TAB PO SCH (21:00)
[2020-03-02] MEDS ORDERED: ASPIRIN 81 MG CHEW PO SCH (21:00)
[2020-03-02] MEDS ORDERED: TRAZODONE HCL 100 MG TAB PO SCH (21:00)
[2020-03-03] MEDS: SODIUM CHLORIDE 0.9% 1000ML 1,000 ML IV SCH (02:10)
[2020-03-03 05:38] LABS: Hematocrit (blood only) 43.5 % (42-52); Hemoglobin 15.1 g/dL (14.0-18.0); Mean Corpuscular Hemoglobin 30.6 pg (25-34); Mean Corpuscular Hgb Conc 34.7 g/dL (32-36); Mean Corpuscular Volume 88.2 fL (80-100); Mean Platelet Volume 9.8 fL (7.4-10.4); Platelet Count 150 K/uL (130-400); RDW Coefficient of Variation 12.3 % (11.5-14.5); RDW Standard Deviation 39.1 fL (36.4-46.3); Red Blood Count 4.93 M/uL (4.7-6.1); White Blood Count 9.42 K/uL (4.8-10.8)
[2020-03-03 06:11] LABS: BUN Creatinine Ratio 13.9 (10-20); Calcium 8.5 mg/dl (8.5-10.1); Creatinine Clr Calc Pharmacy 124.7 ml/min; Est GFR (African American) 100.6; Est GFR (Non-African American) 86.8
[2020-03-03] MEDS ORDERED: LEVOTHYROXINE SODIUM 25 MCG TABLET PO SCH (06:30)
--- NOTE | 2020-03-03 07:47 | Discharge Summary ---
Date of Service March 03, 2020 Admission HPI Per Admitting Provider This is a 49-year-old male who presents with chronic persistent neck and arm pain after failing course of nonoperative care is here for surgical intervention. Principal Diagnosis Cervical spinal stenosis with radiculopathy Discharge Data Allergies Allergy/AdvReac Type Severity Reaction Status Date / Time risperidone Allergy Severe TONGUE Verified 03/02/20 06:04 SWELLING. Consultations 03/02/20 11:03 Consult Hospitalist Routine Procedures Performed Operation Date: 03/02/20 07:45 Actual Procedures p C5-C6 Anterior Cervical Discectomy Fusion, Spinal Cord Monitoring(Not Applicable) - Carson Thompson DO Ordered Studies 03/02/20 07:45 FL cervical 2-3V Routine FL fluoroscopy <1hr Routine 03/02/20 12:16 US venous doppler LE BI Routine Hospital Course (1) Cervical stenosis of spinal canal: Patient underwent anterior cervical discectomy fusion tolerated well second orthopedic for possibly. Postop day 1 swallowing well no hoarseness. Arm symptoms markedly improved. Strength intact. OLGA drain decreasing appropriately. Subsequently discharged home. Total Time Total Time Spent Total Time Spent (In Minutes): 20 minutes Discharge Plan Discharge Items Patient Disposition: Home - Self-Care Reason For Visit: CERVICAL SPINAL STENOSIS Discharge Diagnosis: Cervical spinal stenosis with radiculopathy Activity: As commented below Non-emergency contact: Primary Care Provider Call non-emergency contact if: you have any medication questions Follow-up/Referrals: Marco A Lira DO [Primary Care Provider] - Diet: Regular Addtl Attending Provider Instructions: ACTIVITY RECOMMENDATIONS: SELF CARE INSTRUCTIONS AFTER CERVICAL FUSIONS 1. No smoking. Smoking drastically decreases the chance of a solid fusion. 2. No bending, lifting more than 5 pounds, or twisting (roll like a log when turning in bed). 3. You may shower 3 days after surgery. Thoroughly dry wound. Do not soak in the tub. 4. Cervical collar: Must be worn at all times including sleeping. You may remove the brace only to bath, eat and if you are sitting in a recliner. 5. Please walk as much as you can for exercise. Gradually increase the distance that you walk as your endurance increases. SPECIAL CARE INSTRUCTIONS: VERY IMPORTANT TO READ AND REVIEW A. Do not take any anti-inflammatory medications (i.e. Indocin, Advil, Aspirin, Naprosyn, Aleve, Motrin, etc.) as these may inhibit the chance of a solid fusion. Tylenol is okay to take. B. Your surgical incision has been closed with a cosmetic suture under the skin that will dissolve in about 6 weeks. In 14 days, you can use a pair of clean scissors and cut the suture that is left outside of the skin at the ends of your incision. C. Complications are uncommon, but please contact us if you have any signs or symptoms of: 1. wound infection (fever higher than 102.5 degrees F, redness, separation of wound, drainage, or increasing pain from the incision) 2. blood clots in legs (pain, swelling, redness and warmth in legs) 3. urinary tract infection (fever higher than 102.5 degrees, burning upon urination or increased frequency of urination) 4. nerve problems (inability to walk on your toes or heels, numbness, loss of bowel or bladder control) 5. any other symptoms that concern you. D. Please call the office at if you have any concerns or questions about your operation or recovery. MANAGING PAIN AFTER SPINAL SURGERY 1. Narcotic medication is intended for short-term use and will be provided for surgical pain. Surgical pain usually lasts for a period of 4-6 weeks. Narcotic medication includes Percocet, Vicodin, Darvocet, Tylenol #3 or Lortab. 2. Longer-term pain is more appropriately treated with non-narcotic medication such as Tylenol ES. 3. Muscle spasm is not appropriately treated with narcotics. Muscle relaxers such as Soma, Flexeril or Skelaxin can be used along with Tylenol ES. 4. Remember that we all live with some "aches and pains". This is not unusual or uncommon after an injury or as we get older. 5. We will provide appropriate medication within the normal guidelines of their prescribed use. We will also be very cautious and aware of potential abuse and extended duration of patients' medication needs. 6. Please allow 2-3 days to process refills. Prescriptions will not be mailed but must be picked up at the office. FOLLOW UP VISIT: Keep your scheduled follow-up appointment. Any questions, please call the office at . Pending Studies at Discharge: No Stand-Alone Forms: Plan B Funding, Smoking Cessation Medications and DC Order Prescriptions: New oxycodone 5 mg tablet 5 mg PO Q6H PRN (Reason: pain, severe) Qty: 14 RF: 0 Continued cyclobenzaprine 10 mg Tablet 10 mg PO TID RF: 0 cyanocobalamin (vitamin B-12) [Vitamin B-12] 1,000 mcg Tablet 1,000 mcg PO QAM RF: 0 levothyroxine [Synthroid] 25 mcg Tablet 25 mcg PO QAM RF: 0 pantoprazole [Protonix] 40 mg Tablet,Delayed Release (Dr/Ec) 40 mg PO DAILY RF: 0 losartan 25 mg Tablet 25 mg PO QAM RF: 0 gabapentin 300 mg Capsule 600 mg PO TID RF: 0 aspirin 81 mg Tablet,Chewable 81 mg PO HS RF: 0 metoprolol succinate 25 mg Tablet Extended Release 24 Hr 12.5 mg PO BID RF: 0 multivitamin Capsule 1 cap PO QAM RF: 0 insulin aspart U-100 [Novolog PenFill U-100 Insulin] 100 unit/mL Cartridge 7 unit SUBCUT BIDM RF: 0 bupropion HCl [Wellbutrin XL] 300 mg Tablet Extended Release 24 Hr 300 mg PO QAM RF: 0 pregabalin [Lyrica] 75 mg Capsule 75 mg PO TID RF: 0 Basaglar KwikPen U-100 Insulin 100 unit/mL (3 mL) Insulin Pen 65 unit SUBCUT QAM RF: 0 cholecalciferol (vitamin D3) [Vitamin D3] 1,000 unit Tablet,Chewable 1,000 unit PO QAM RF: 0 Xarelto 20 mg Tablet 20 mg PO PM RF: 0 rosuvastatin [Crestor] 40 mg Tablet 40 mg PO HS RF: 0 trazodone 100 mg Tablet 100 mg PO HS RF: 0 Basaglar KwikPen U-100 Insulin 100 unit/mL (3 mL) Insulin Pen 60 unit SUBCUT QPM RF: 0 Ozempic 0.25 mg or 0.5 mg(2 mg/1.5 mL) Pen Injector 0.5 mg SUBCUT WK RF: 0 sucralfate [Carafate] 100 mg/mL Suspension 10 ml PO TID RF: 0 hydroxyzine pamoate [Vistaril] 50 mg Capsule 50 mg PO BID RF: 0 fluvoxamine 100 mg Tablet 100 mg PO HS RF: 0 ascorbic acid (vitamin C) 500 mg Capsule See Rx Instructions .ROUTE .COMPLEX RF: 0 Iron Supplement RF: 0 Discontinued meloxicam 15 mg Tablet 15 mg PO QAM RF: 0 Discharge Orders: Discharge Order (Routine); Ordered 03/03/20 Ordered By: Carson Thompson Admission Data Admit Date/Time: 03/02/20 09:24 Attending Provider: Carson Thompson Admit Provider: Carson Thompson Primary Care Provider: Marco A Lira Other Providers: Nahun Liz
--- NOTE | 2020-03-03 08:26 | Hospitalist Progress Note ---
Date of Service March 03, 2020 Assessment & Plan (1) S/P spinal surgery: Post op day# 1 S/P ACDF C5-C6 by Dr Thompson Post op pain controlled EBL#10ml Total OLGA drain ouptut#23ml -pain management per ortho -wound management per ortho -PT/OT as appropriate -DVT prophylaxis per ortho -bowel regimen -Hgb: 15 and stable (2) Hypertension: -Continue losartan with holding parameters (3) History of pulmonary embolism: HISTORY OF DEEP VEIN THROMBOSIS H/O DVT and PE in 2010. On Xarelto since Xarelto on hold 5 days pre-op -No SOB, CP, LE pain or edema reported -Hold Xarelto at this time, resume when ok per ortho spine (4) Diabetes mellitus, type 2: A1c: 7.3 on 02/17/2020. Follows with endocrinology -Hold home insulin and ozempic -Basal bolus insulin. Glycemic pharmacy on board, appreciate assistance with management -Pt was on liquid diet and required significantly less basal and bolus insulin than his baseline -Will need to decrease basal insulin and monitor until on full diet, recommended to pt to take half his home dose of basal insulin upon discharge and resuming his normal diet and sliding scale with is novolog. Pt has jagdish continuous glucose monitor and is aware and understanding of his BSG's and careful monitoring and decreasing basal and bolus insulin until he is back at his baseline diet and baseline BSGs -recommend follow up with endocrinology (5) Hyperlipidemia: -Continue statin (6) Hypothyroidism: -Continue levothyroxine (7) Sleep apnea: CPAP HS -Will continue CPAP HS per ortho spine recommendations (8) Depression: Anxiety -Continue buspirone, fluvoxamine (9) Obesity: BMI: 38. S/P gastric bypass in 2012 DVT Prophylaxis -SCDs Disposition per primary service Follows with Dr Marco A Lira in [place], [place] for routine care. recommend follow up appointment Pt was seen and care coordinated with Dr Marquez. See addendum Admission and Anticipated Discharge Date Admission Date: March 02, 2020 Supervising Physician Co-Signing Physician Notes Agreed with Ellie MELGAR exam, assessment and Plan. S/P day #1 anterior cervical discectomy with bilateral foraminotomies C5-C6 performed by Dr. Thompson. No post op complications. Continue pain control and PT/OT as per Ortho. BS stable. Will advised pt take monitor his BS closely and to take half dose of his insulin until his diet advance to a full diet. Please resume Xarelto once bleeding control, will defer to Ortho. Fall precaution. MD Alma Subjective Pt seen and examined. Sitting up in bedside chair. Reports pain well controlled. Has some slight paresthesias to left arm that are much improved than prior to surgery. Denies extremity weakness. Tolerating liquid diet and denies any dysphagia. Reports passing flatus. No BM today. Ambulating to bathroom without difficulty. Denies fever/chills, diaphoresis, N/V, CARRERA, dizziness, syncope, vision changes, CP, SOB, orthopnea, palpitations, cough, sore throat, choking, otalgia, rhinorrhea, abdominal pain, extremity edema, rashes, urinary symptoms. Review of Systems Review of Systems: All systems reviewed & are unremarkable except as noted in HPI & below Physical Exam Physical Exam: General: no distress, obese Head: normocephalic, atraumatic Eyes: conjunctiva non-injected, anicteric ENT: normal inspection external ears, nose, mucous membranes moist Neck: C-collar in place, trachea midline, dressing to anterior neck is dry and intact, OLGA drain intact with slight serosanguineous drainage Lungs: clear, no respiratory distress, no wheezing/rhonchi/rales CV: RRR, no murmur, no pretibial edema Abd: normal BS, soft, protuberant, non-tender Ext: no cyanosis, no calf tenderness, ROM upper and lower extremities intact, distal pulses intact, sensation to light touch intact Neuro: A&O x 3, no focal deficits noted, normal affect Skin: warm, dry Results & Data Results & Data ([facility]) Vital Signs (Past 12 Hours) Vital Signs Temp Pulse Pulse Resp BP BP Pulse Ox 03/03/20 08:07 36.5 C 91 H 86 18 132/87 134/74 95 03/03/20 07:27 91 H 18 95 03/03/20 05:57 36.5 C 86 16 134/74 92 03/03/20 04:18 36.5 C 87 16 123/72 98 03/03/20 03:21 89 18 97 03/03/20 02:12 36.3 C L 93 H 16 109/69 95 03/02/20 23:50 36.5 C 98 H 18 126/79 94 03/02/20 23:05 95 H 16 95 Laboratory Results Short CBC 03/03/20 Range/Units 05:23 WBC 9.42 (4.8-10.8) K/uL Hgb 15.1 (14.0-18.0) g/dL Hct 43.5 (42-52) % Plt Count 150 (130-400) K/uL BMP 03/03/20 05:23 Sodium 144 Potassium 4.0 Chloride 111 H Carbon Dioxide 28 BUN 14 Creatinine 1.00 Glucose 78 Calcium 8.5
[2020-03-03] MEDS: INSULIN ASPART 100 UNITS/ML 3 ML PEN SC SCH (08:46)
[2020-03-03] MEDS: SUCRALFATE 1 GM/10 ML UDC PO SCH (08:47)
[2020-03-03] MEDS: CYCLOBENZAPRINE HCL 10 MG TAB PO SCH (08:49)
[2020-03-03] MEDS: PREGABALIN 75 MG CAP PO SCH (08:49)
[2020-03-03] MEDS: METOPROLOL SUCC 25MG EXT REL TAB PO SCH (08:49)
[2020-03-03] MEDS: GABAPENTIN 300 MG CAP PO SCH (08:49)
[2020-03-03] MEDS ORDERED: CHOLECALCIFEROL 1,000 UNITS 25 MCG TAB PO SCH (09:00)
[2020-03-03] MEDS ORDERED: PANTOprazole 40 MG TAB PO SCH (09:00)
[2020-03-03] MEDS ORDERED: CYANOCOBALAMIN 500 MCG TABLET (VITAMIN B-12) PO SCH (09:00)
[2020-03-03] MEDS ORDERED: BuPROPion XL 300 MG TABCR PO SCH (09:00)
[2020-03-03] MEDS ORDERED: MULTIVITAMIN TAB PO SCH (09:00)
[2020-03-03] MEDS ORDERED: LOSARTAN POTASSIUM 25 MG TAB PO SCH (09:00)
[2020-03-03] MEDS ORDERED: POLYETHYLENE (MIRALAX) 17 GM PACK PO SCH (09:14)
[2020-03-04] MEDS ORDERED: bisacodyL 10 MG SUPP PR PRN (09:14)
== END 2020-03-03 09:54 | disposition home or self-care (01) | DRG 473 ==
LOC: ASU 05:44 → 3E 09:24

== ENCOUNTER 2020-03-05 11:34 | Observation (INO) ==
--- NOTE | 2020-03-05 15:34 | History & Physical Report ---
Date of Service March 05, 2020 Assessment & Plan (1) Postoperative edema: Shortness of breath -Patient Beny Mg is a 49 year old male who was discharged on 03/03/[address] [facility] from [facility] after a cervical spine surgery on 03/02/2020 (anterior cervical discectomy with bilateral foraminotomies C5-C6. anterior cervical arthrodesis C5-C6. placement of Spira titanium cage 8 mm height filled with DBM at C5-C6. #4 application of menendez plate and screws across C5-C6.) because of operative diagnosis of cervical spinal stenosis. He was discharged on 03/03/2020 with neck brace and OLGA drain was removed. -Patient then reported he was feeling shortness of breath while sitting up and presented to [facility] on 03/05/2020. he had CTA scan and no evidence of pulmonary embolism. He CT neck with marked edema thickening of retropharnyngeal soft tissues extending from C1 to the C4-C5 disc, soft tissue thickening measuring up to 1.9 cm at C3, no abscess. Hemoglobin of 17 -Dr. Marquez accepted the patient for the transfer to [facility]. Dr. Marquez had discussed with Dr. Thompson about accepting the patient and advised starting dexamethasone 4 mg IV q 8 hours and will plan for formal orthopedic evaluation -patient reported he was able to eat pizza on the night of 03/04/2020 without difficulties. perform dysphagia screen, aspiration precautions, speech and swallow assessment, if swallowing is okay then can consider liquid diet and then NPO after midnight in case of further neck problems which may require surgical interventions, consider neck imaging repeat on 03/06/2020 -on exam at [facility], patient on room air with neck brace and no acute distress, no acute tenderness on palpation of the neck -place on continuous pulse oximetry Diabetes mellitus type 2 with longterm current use of insulin -hold home dose ozempic -give basal Lantus and sliding scale insulin -monitor blood glucose closely while on dexamethasone 4 mg IV q8 hours, have request pharmacy glycemic History of DVT and Pulmonary embolism in the past (2010) -he has been on Xarelto anticoagulation since that time -There is no sonographic evidence of deep venous thrombosis identified in the right or left lower extremity on this 03/02/2020 ultrasound -no pulmonary embolism of chest CTA at [facility] on 03/05/2020 -hold the Xarelto for now -DVT prophylaxis: SCDs for now, hold the Xarelto Sleep apnea -allow for CPAP at night Obesity with BMI: 38 -S/P gastric bypass in 2012 Hypertension -hold home dose 25mg daily losartan, give IV 1.25 mg enalaprilat q12 hours Hypothyroidism -hold home dose 25 mcg daily levothyroxine for now Hyperlipidemia -hold home dose statin for now Code Status: Full Code -My colleague Dr. Marquez will be the hospitalist medicine consult starting on 03/06/2020 Admission and Anticipated Discharge Date Admission Date: March 05, 2020 History of Present Illness -Patient Beny Mg is a 49 year old male who was discharged on 03/03/[address] Thompson of [facility] from [facility] after a cervical spine surgery on 03/02/2020 (anterior cervical discectomy with bilateral foraminotomies C5-C6. anterior cervical arthrodesis C5-C6. placement of Spira titanium cage 8 mm height filled with DBM at C5-C6. #4 application of menendez plate and screws across C5-C6.) because of operative diagnosis of cervical spinal stenosis. He was discharged on 03/03/2020 with neck brace and OLGA drain was removed. -Patient then reported he was feeling shortness of breath while sitting up and presented to [facility] on 03/05/2020. he had CTA scan and no evidence of pulmonary embolism. He CT neck with marked edema thickening of retropharnyngeal soft tissues extending from C1 to the C4-C5 disc, soft tissue thickening measuring up to 1.9 cm at C3, no abscess. Hemoglobin of 17 -Dr. Marquez accepted the patient for the transfer to [facility]. Dr. Marquez had discussed with Dr. Thompson about accepting the patient and advised starting dexamethasone 4 mg IV q 8 hours and will plan for formal orthopedic evaluation -patient reported he was able to eat pizza on the night of 03/04/2020 without di fficulties. neck in neck brace, he was able to take it off on his own. there is dressing over previous OLGA drain site. no acute swelling on neck palpation no current shortness of breath at the bedside. no chest pain. no palpitations. denies neck pains. no abdomen pain. no vomiting. no dizziness. no headache. no dizziness. no problems with bowel movements or urination Primary Care Provider: Marco A Lira DO Allergies Allergy/AdvReac Type Severity Reaction Status Date / Time risperidone Allergy Severe TONGUE Verified 03/02/20 06:04 SWELLING. Home Medications Home Medications Medication Instructions Recorded Confirmed Type Basaglar KwikPen U-100 Insulin 65 unit SUBCUT QAM 08/03/19 03/02/20 History Xarelto 20 mg PO PM 08/03/19 03/02/20 History aspirin 81 mg PO HS 08/03/19 03/02/20 History bupropion HCl [Wellbutrin XL] 300 mg PO QAM 08/03/19 03/02/20 History cholecalciferol (vitamin D3) 1,000 unit PO QAM 08/03/19 03/02/20 History [Vitamin D3] cyanocobalamin (vitamin B-12) 1,000 mcg PO QAM 08/03/19 03/02/20 History [Vitamin B-12] cyclobenzaprine 10 mg PO TID 08/03/19 03/02/20 History gabapentin 600 mg PO TID 08/03/19 03/02/20 History insulin aspart U-100 [Novolog 7 unit SUBCUT BIDM 08/03/19 03/02/20 History PenFill U-100 Insulin] levothyroxine [Synthroid] 25 mcg PO QAM 08/03/19 03/02/20 History losartan 25 mg PO QAM 08/03/19 03/02/20 History metoprolol succinate 12.5 mg PO BID 08/03/19 03/02/20 History multivitamin 1 cap PO QAM 08/03/19 03/02/20 History pantoprazole [Protonix] 40 mg PO DAILY 08/03/19 03/02/20 History pregabalin [Lyrica] 75 mg PO TID 08/03/19 03/02/20 History rosuvastatin [Crestor] 40 mg PO HS 08/03/19 03/02/20 History Basaglar KwikPen U-100 Insulin 60 unit SUBCUT QPM 11/04/19 03/02/20 History trazodone 100 mg PO HS 11/04/19 03/02/20 History Ozempic 0.5 mg SUBCUT WK 02/11/20 03/02/20 History sucralfate [Carafate] 10 ml PO TID 02/11/20 03/02/20 History Iron Supplement 02/17/20 History ascorbic acid (vitamin C) See Rx Instructions .ROUTE .COMPLEX 02/17/20 03/02/20 History fluvoxamine 100 mg PO HS 02/17/20 03/02/20 History hydroxyzine pamoate [Vistaril] 50 mg PO BID 02/17/20 03/02/20 History oxycodone 5 mg PO Q6H PRN #14 tab 03/02/20 Rx Past Med/Surg History Social History Preferred Language: Japanese Communication Ability: Effective Master Control Supervisor Required: No Beliefs That Will Affect Care: None Current Living Situation: Spouse Feels Safe at Home: Yes Smoking Status: Former smoker Tobacco Type: cigarettes ; Cigarettes Per Day: h/o 1ppd ; Second Hand Exposure: No ; Hx Alcohol Use: No Hx Substance Use: No Review of Systems Review of Systems: All systems reviewed & are unremarkable except as noted in Subjective Physical Exam Constitutional: WD/WN, vitals as above comfortable Eyes: PERRL, conjunctivae normal, anicteric sclerae EOM intact bilaterally ENMT: external ear and nose normal, oropharynx normal Neck: neck in neck brace, he was able to take it off on his own. there is dressing over previous OLGA drain site. no acute swelling on neck palpation Respiratory: normal respiratory effort, lungs clear to auscultation Cardiovascular: Rate/Rhythm: regular rate Gastrointestinal (Abdomen): normal bowel sounds, soft, nontender, no hep atosplenomegaly Musculoskeletal: Head/Neck/Chest: normocephalic and head atraumatic Neurologic: PERRL, EOMI, accommodation nl, no face palsy, no dysarthria CN's II-XI intact bilaterally Psychiatric: A+Ox3, euthymic affect
[2020-03-05] MEDS ORDERED: DEXTROSE 50% 50 ML SYRINGE IV PRN (15:36)
[2020-03-05] MEDS ORDERED: CARBOHYDRATES FOR HYPOGLYCEMIA PO PRN (15:36)
[2020-03-05] MEDS ORDERED: GLUCOSE 10 TABS/TUBE PO PRN (15:36)
[2020-03-05] MEDS ORDERED: GLUCAGON FOR INJ 1 MG VIAL SQ PRN (15:36)
[2020-03-05] MEDS ORDERED: GLUCOSE 40% GEL 15 GM TUBE PO PRN (15:36)
[2020-03-05] MEDS ORDERED: PHARMACY GLYCEMIC MGMT CONSULT STA (16:00)
[2020-03-05] MEDS ORDERED: PHARMACY GLYCEMIC MGMT CONSULT PRN (16:00)
[2020-03-05] MEDS ORDERED: INSULIN ASPART 100 UNITS/ML 3 ML PEN SC SCH ×3 (16:30→18:00)
[2020-03-05 16:37] LABS: BUN Creatinine Ratio 10.5 (10-20); Calcium 9.2 mg/dl (8.5-10.1); Creatinine Clr Calc Pharmacy 111.2 ml/min; Est GFR (African American) 89.6; Est GFR (Non-African American) 77.3; Potassium 4.2 mmol/L (3.5-5.1)
[2020-03-05] MEDS: DEXAMETHASONE SOD PHOSPHATE 4 MG in SYRINGE 0 ML IV SCH ×2 (16:57→23:48)
[2020-03-05] MEDS ORDERED: INSULIN GLARGINE 100 UNIT/ML VIAL SC ONE (17:00)
[2020-03-05] MEDS ORDERED: INSULIN PROTOCOL GOAL RANGE ONE (17:24)
[2020-03-05] MEDS ORDERED: MODERATE STRESS LEVEL ONE (17:24)
[2020-03-05] MEDS ORDERED: INSULIN REGULAR 250 UNITS in SODIUM CHLORIDE 0.9% 247.5 ML IV SCH (17:45)
--- NOTE | 2020-03-05 20:29 | Pharmacy Report ---
PHA: Glycemic Control AP - Date of Service March 05, 2020 - Assessment & Plan Laboratory Tests 02/17/20 03/05/20 03/05/20 10:36 15:52 19:26 POC Glucose 215 H 349 H* Hemoglobin A1c 7.3 H Home Diabetes regimen: * Basaglar 65 units sq qAM, 60 units sq qPM--last dose reported 03/01/20 * Novolog 16 units breakfast, 20 units lunch, 25 units dinner--last dose reported 03/04/20 * Estimate total insulin/day = 186 units. In-Patient Plan: * Pt ordered dexamethasone 4mg IV q8 hours. * Basal insulin: As pt is insulin deficient, gave Lantus 50 units sq x 1 this afternoon, reassess 7/5 AM * INSULIN INFUSION: As pt is insulin deficient, will start insulin infusion with goal BSG 110-180mg/dL, MODERATE stress. No initial bolus. Reassess 7/5 AM. * Prandial insulin: Novolog Correction per insulin infusion rate change calculator Pharmacy will continue to monitor patient daily and write orders per [facility] inpatient glycemic control protocol. Thanks. * Please note that the plan above was derived based on current level of insulin resistance and hospital stress. These recommendations are appropriate for inpatient admission only. Plan of care upon discharge will need to be reassessed to avoid potential outpatient hypo/hyperglycemia.
[2020-03-05] MEDS: ENALAPRILAT 1.25 MG in DEXTROSE 5% 25 ML IV SCH (20:51)
[2020-03-05] MEDS: INSULIN ASPART 100 UNITS/ML 3 ML PEN SC SCH (21:02)
[2020-03-06 06:35] LABS: Basophils # (auto) 0.01 K/uL (0-0.2); Basophils % (auto) 0.1 %; Hematocrit (blood only) 47.1 % (42-52); Hemoglobin 17.1 g/dL (14.0-18.0); Immature Granulocytes # (auto) 0.03 K/uL (0.00-0.02); Immature Granulocytes % (auto) 0.3 %; Lymphocytes # (auto) 0.95 K/uL (1.2-3.4); Lymphocytes % (auto) 8.2 %; Mean Corpuscular Hemoglobin 31.4 pg (25-34); Mean Corpuscular Hgb Conc 36.3 g/dL (32-36); Mean Corpuscular Volume 86.6 fL (80-100); Mean Platelet Volume 10.2 fL (7.4-10.4); Monocytes # (auto) 0.73 K/uL (0.11-0.59); Monocytes % (auto) 6.3 %; Neutrophils # (auto) 9.87 K/uL (1.4-6.5); Neutrophils % (auto) 85.1 %; Platelet Count 187 K/uL (130-400); RDW Standard Deviation 37.9 fL (36.4-46.3); Red Blood Count 5.44 M/uL (4.7-6.1); White Blood Count 11.59 K/uL (4.8-10.8)
[2020-03-06 07:03] LABS: BUN Creatinine Ratio 13.8 (10-20); Calcium 9.7 mg/dl (8.5-10.1); Creatinine Clr Calc Pharmacy 126.2 ml/min; Est GFR (African American) 104.3; Potassium 3.9 mmol/L (3.5-5.1)
[2020-03-06] MEDS: DEXAMETHASONE SOD PHOSPHATE 4 MG in SYRINGE 0 ML IV SCH (07:21)
[2020-03-06] MEDS ORDERED: INSULIN GLARGINE 100 UNIT/ML VIAL SC ONE ×2 (08:00→11:30)
[2020-03-06] MEDS: ENALAPRILAT 1.25 MG in DEXTROSE 5% 25 ML IV SCH (08:35)
[2020-03-06] MEDS: INSULIN ASPART 100 UNITS/ML 3 ML PEN SC SCH ×2 (08:57→12:56)
--- NOTE | 2020-03-06 11:18 | Orthopedic Consultation ---
Date of Consultation March 06, 2020 Assessment & Plan (1) Postoperative edema: At this time he seems to be improving appropriately with IV Decadron. From my perspective he is okay for discharge home. We will see him as scheduled in the next few weeks in the office. Present on Admission?: Yes History of Present Illness Reason for Consultation: Swallowing difficulties Attending Physician: Priyanka Marquez MD History of Present Illness This is a 49-year-old male status post ACDF well-known to me having had surgery several days ago. He presents the emergency room at [facility] with some concerns about difficulty breathing when lying supine. He states that he is very comf ortable at this time. His swallowing issues have completely resolved. He has no arm symptoms. No shortness of breath. Allergies Allergy/AdvReac Type Severity Reaction Status Date / Time risperidone Allergy Severe TONGUE Verified 03/02/20 06:04 SWELLING. Home Medications Home Medications Medication Instructions Recorded Confirmed Type Basaglar KwikPen U-100 Insulin 65 unit SUBCUT QAM 08/03/19 03/02/20 History Xarelto 20 mg PO PM 08/03/19 03/02/20 History aspirin 81 mg PO HS 08/03/19 03/02/20 History bupropion HCl [Wellbutrin XL] 300 mg PO QAM 08/03/19 03/05/20 History cholecalciferol (vitamin D3) 1,000 unit PO QAM 08/03/19 03/05/20 History [Vitamin D3] cyanocobalamin (vitamin B-12) 1,000 mcg PO QAM 08/03/19 03/02/20 History [Vitamin B-12] cyclobenzaprine 10 mg PO TID 08/03/19 03/05/20 History gabapentin 600 mg PO TID 08/03/19 03/05/20 History insulin aspart U-100 [Novolog 7 unit SUBCUT BIDM 08/03/19 03/02/20 History PenFill U-100 Insulin] levothyroxine [Synthroid] 25 mcg PO QAM 08/03/19 03/05/20 History losartan 25 mg PO QAM 08/03/19 03/05/20 History metoprolol succinate 12.5 mg PO BID 08/03/19 03/05/20 History multivitamin 1 cap PO QAM 08/03/19 03/05/20 History pantoprazole [Protonix] 40 mg PO DAILY 08/03/19 03/05/20 History pregabalin [Lyrica] 75 mg PO TID 08/03/19 03/05/20 History rosuvastatin [Crestor] 40 mg PO HS 08/03/19 03/02/20 History Basaglar KwikPen U-100 Insulin 60 unit SUBCUT QPM 11/04/19 03/02/20 History trazodone 100 mg PO HS 11/04/19 03/02/20 History Ozempic 0.5 mg SUBCUT WK 02/11/20 03/02/20 History sucralfate [Carafate] 10 ml PO TID 02/11/20 03/02/20 History Iron Supplement 02/17/20 History ascorbic acid (vitamin C) See Rx Instructions .ROUTE .COMPLEX 02/17/20 03/05/20 History fluvoxamine 100 mg PO HS 02/17/20 03/02/20 History hydroxyzine pamoate [Vistaril] 50 mg PO BID 02/17/20 03/05/20 History oxycodone 5 mg PO Q6H PRN #14 tab 03/02/20 Rx meloxicam 15 mg PO QAM 03/05/20 History sucralfate [Carafate] 1 g PO TID 03/05/20 History Patient History Social History Preferred Language: Irish Communication Ability: Effective Bender Hand Required: Yes Beliefs That Will Affect Care: None Current Living Situation: Spouse Other Information That Helps Us Care for You: No Feels Safe at Home: Yes Safety Concerns: Feels Safe At This Time Smoking Status: Former smoker Tobacco Type: cigarettes ; Cigarettes Per Day: h/o 1ppd ; Do You Dip or Chew Tobacco: No ; Second Hand Exposure: Yes ; Hx Alcohol Use: No Hx Substance Use: No Physical Exam Physical Exam: On exam he appears comfortable. Dressings in place. Excellent strength testing. Collar is in place. Results & Data ([facility]) Vital Signs (Past 12 Hours) Vital Signs Temp Pulse Resp BP Pulse Ox 03/06/20 07:54 36.5 C 89 18 136/83 97
[2020-03-06] MEDS ORDERED: INSULIN ASPART 100 UNITS/ML 3 ML PEN SC ONE (13:00)
[2020-03-06] MEDS ORDERED: INSULIN ASPART 100 UNITS/ML 3 ML PEN SC SCH ×2 (16:30→18:00)
--- NOTE | 2020-03-06 18:14 | Hospitalist Progress Note ---
Date of Service March 06, 2020 Assessment & Plan (1) Postoperative edema: Was sent as a direct admission from [facility] for shortness of breath S/P anterior cervical discectomy with bilateral foraminotomies C5-C6. anterior cervical arthrodesis C5-C6. placement of Spira titanium cage 8 mm height filled with DBM at C5-C6. #4 application of menendez plate and screws across C5-C6.) performed by Dr. Thompson on 03/02/20 CT neck was done at [facility] showed marked edema thickening of retropharnyngeal soft tissues extending from C1 to the C4-C5 disc, soft tissue thickening measuring up to 1.9 cm at C3, no abscess. CTA chest at [facility] showed no evidence of PE Pt was starting on decadron IV for the soft tissue edema Saturated well on RA and denies any dysphagia Ortho on board Case discussed with Dr. Thompson that recommended to transition to Medrol dose indigo Continue neck brace Stable from orthopedic standpoint to discharge home Follow up with orthopedic outpatient Diabetes mellitus type 2 with jail current use of insulin Recent Hba1c 7.3 Home DM meds on hold BS elevated since pt on IV steroid Pharmacy on board for glycemic management On Lantus and Novolog sliding scale Pt does not want to stay for tonight that we can control his BS Case discussed with pharmacy and recommended for patient to resume his home insulin dose on discharge Advised pt to monitor his BS closely and bring BS log at your next appointment with your PCP History of DVT and Pulmonary embolism in the past (2010) Will resume xarelto on discharge Sleep apnea CPAP at night Obesity with BMI: 38 S/P gastric bypass in 2012 Counseling on diet and weight loss Hypertension BP stable Will resume losartan on discharge Hypothyroidism Will resume Levothyroxine 25mg on discharge Hyperlipidemia Will resume statin on discharge DVT prophylaxis: SCDs Will resume Xarelto Code Status: Full Code Disposition Discharge home today Admission and Anticipated Discharge Date Admission Date: March 05, 2020 Subjective Pt was seen and examined Sitting in bed with no distress Pt said that he feels fine He said that he is ready to go home He said that Dr. Thompson already cleared him He said that his has been waiting for him in the parking lot I asked him if he is willing to stay for one more night that we can manage his BS, he said no He is ready for discharge Denies any chest pain, palpitation, dizziness and SOB Physical Exam Physical Exam: General- No acute distress Head- atraumatic Eyes- PERRL, EOMI, ENT- oropharynx clear Neck- supple, Neck collar Lungs- clear to auscultation Heart- regular rhythm; no murmur Abdomen- normal bowel sounds, soft, nontender Extremities- no calf tenderness Neuro- alert, oriented x 3; PERRL, EOMI; no facial palsy; no dysarthria Skin- warm & dry Results & Data Results & Data ([facility]) Vital Signs (Past 12 Hours) Vital Signs Temp Pulse Pulse Resp BP Pulse Ox 03/06/20 14:48 36.5 C 101 H 89 18 136/83 97 03/06/20 07:54 36.5 C 89 18 136/83 97
--- NOTE | 2020-03-07 09:26 | Discharge Summary ---
Date of Service March 06, 2020 Admission HPI Per Admitting Provider -Patient Beny Mg is a 49 year old male who was discharged on 03/03/[address] Thompson of [facility] from [facility] after a cervical spine surgery on 03/02/2020 (anterior cervical discectomy with bilateral foraminotomies C5-C6. anterior cervical arthrodesis C5-C6. placement of Spira titanium cage 8 mm height filled with DBM at C5-C6. #4 application of menendez plate and screws across C5-C6.) because of operative diagnosis of cervical spinal stenosis. He was discharged on 03/03/2020 with neck brace and OLGA drain was removed. -Patient then reported he was feeling shortness of breath while sitting up and presented to [facility] on 03/05/2020. he had CTA scan and no evidence of pulmonary embolism. He CT neck with marked edema thickening of retropharnyngeal soft tissues extending from C1 to the C4-C5 disc, soft tissue thickening measuring up to 1.9 cm at C3, no abscess. Hemoglobin of 17 -Dr. Marquez accepted the patient for the transfer to [facility]. Dr. Marquez had discussed with Dr. Thompson about accepting the patient and advised starting dexamethasone 4 mg IV q 8 hours and will plan for formal orthopedic evaluation -patient reported he was able to eat pizza on the night of 03/04/2020 without difficulties. neck in neck brace, he was able to take it off on his own. there is dressing over previous OLGA drain site. no acute swelling on neck palpation no current shortness of breath at the bedside. no chest pain. no palpitations. denies neck pains. no abdomen pain. no vomiting. no dizziness. no headache. no dizziness. no problems with bowel movements or urination Admission Exam Per Admitting Provider Constitutional: WD/WN, vitals as above comfortable Eyes: PERRL, conjunctivae normal, anicteric sclerae EOM intact bilaterally ENMT: external ear and nose normal, oropharynx normal Neck: neck in neck brace, he was able to take it off on his own. there is dressing over previous OLGA drain site. 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 Consultations 03/05/20 15:38 Consult Orthopedic Surgery Routine Hospital Course (1) Postoperative edema: Was sent as a direct admission from [facility] for shortness of breath S/P anterior cervical discectomy with bilateral foraminotomies C5-C6. anterior cervical arthrodesis C5-C6. placement of Spira titanium cage 8 mm height filled with DBM at C5-C6. #4 application of mennedez plate and screws across C5-C6.) performed by Dr. Thompson on 03/02/20 CT neck was done at [facility] showed marked edema thickening of retropharnyngeal soft tissues extending from C1 to the C4-C5 disc, soft tissue thickening measuring up to 1.9 cm at C3, no abscess. CTA chest at [facility] showed no evidence of PE Pt was starting on decadron IV for the soft tissue edema Saturated well on RA and denies any dysphagia Ortho on board Case discussed with Dr. Thompson that recommended to transition to Medrol dose jaime Continue neck brace Stable from orthopedic standpoint to discharge home Follow up with orthopedic outpatient Diabetes mellitus type 2 with custodial current use of insulin Recent Hba1c 7.3 Home DM meds on hold BS elevated since pt on IV steroid Pharmacy on board for glycemic management On Lantus and Novolog sliding scale Pt does not want to stay for tonight that we can control his BS Case discussed with pharmacy and recommended for patient to resume his home insulin dose on discharge Advised pt to monitor his BS closely and bring BS log at your next appointment with your PCP History of DVT and Pulmonary embolism in the past (2010) Will resume xarelto on discharge Sleep apnea CPAP at night Obesity with BMI: 38 S/P gastric bypass in 2013 Counseling on diet and weight loss Hypertension BP stable Will resume losartan on discharge Hypothyroidism Will resume Levothyroxine 25mg on discharge Hyperlipidemia Will resume statin on discharge DVT prophylaxis: SCDs Will resume Xarelto Code Status: Full Code Disposition Discharge home today Total Time Total Time Spent Total Time Spent (In Minutes): 35 minutes Total Time Includes: Examination of the Patient, Discharge Planning, Medication Reconciliation, Communication With Other Providers and Other Discharge Plan Discharge Items Patient Disposition: Home - Self-Care Reason For Visit: SOB,S/P SURGERY ON 03/02/20 Discharge Diagnosis: Postoperative edema: Shortness of breath Diabetes mellitus type 2 with custodial current use of insulin Activity: Resume your previous activity Non-emergency contact: Primary Care Provider, Surgeon and Specialist Call non-emergency contact if: you have any medication questions and your temperature is above 101 Follow-up/Referrals: Marco A Lira DO [Primary Care Provider] - Diet: Carb Consistent or DM2 Addtl Attending Provider Instructions: Follow up with your primary care provider Dr. Lira within 1 week Follow up with Dr. Thompson Follow up orthopedic recommendations that were given on the last discharge instruction Continue monitor your blood sugar closely and bring your blood sugar log at your next appointment with your provider Fall precaution 1- No smoking. Smoking drastically decreases the chance of a solid fusion. 2. No bending, lifting more than 5 pounds, or twisting (roll like a log when turning in bed). 3. You may shower 3 days after surgery. Thoroughly dry wound. Do not soak in the tub. 4. Cervical collar: Must be worn at all times including sleeping. You may remove the brace only to bath, eat and if you are sitting in a recliner. 5. Please walk as much as you can for exercise. Gradually increase the distance that you walk as your endurance increases. SPECIAL CARE INSTRUCTIONS: VERY IMPORTANT TO READ AND REVIEW A. Do not take any anti-inflammatory medications (i.e. Indocin, Advil, Aspirin, Naprosyn, Aleve, Motrin, etc.) as these may inhibit the chance of a solid fusion. Tylenol is okay to take. B. Your surgical incision has been closed with a cosmetic suture under the skin that will dissolve in about 6 weeks. In 14 days, you can use a pair of clean scissors and cut the suture that is left outside of the skin at the ends of your incision. C. Complications are uncommon, but please contact us if you have any signs or symptoms of: 1. wound infection (fever higher than 102.5 degrees F, redness, separation of wound, drainage, or increasing pain from the incision) 2. blood clots in legs (pain, swelling, redness and warmth in legs) 3. urinary tract infection (fever higher than 102.5 degrees, burning upon urination or increased frequency of urination) 4. nerve problems (inability to walk on your toes or heels, numbness, loss of bowel or bladder control) 5. any other symptoms that concern you. D. Please call the office at if you have any concerns or questions about your operation or recovery. Pending Studies at Discharge: No Stand-Alone Forms: My [facility], Smoking Cessation Medications and DC Order Prescriptions: New methylprednisolone [Medrol (Jaime)] 4 mg tablets,dose pack 4 mg PO UD Qty: 21 RF: 0 Continued cyclobenzaprine 10 mg Tablet 10 mg PO TID RF: 0 cyanocobalamin (vitamin B-12) [Vitamin B-12] 1,000 mcg Tablet 1,000 mcg PO QAM RF: 0 levothyroxine [Synthroid] 25 mcg Tablet 25 mcg PO QAM RF: 0 pantoprazole [Protonix] 40 mg Tablet,Delayed Release (Dr/Ec) 40 mg PO DAILY RF: 0 losartan 25 mg Tablet 25 mg PO QAM RF: 0 gabapentin 300 mg Capsule 600 mg PO TID RF: 0 aspirin 81 mg Tablet,Chewable 81 mg PO HS RF: 0 metoprolol succinate 25 mg Tablet Extended Release 24 Hr 12.5 mg PO BID RF: 0 multivitamin Capsule 1 cap PO QAM RF: 0 insulin aspart U-100 [Novolog PenFill U-100 Insulin] 100 unit/mL Cartridge 7 unit SUBCUT BIDM RF: 0 bupropion HCl [Wellbutrin XL] 300 mg Tablet Extended Release 24 Hr 300 mg PO QAM RF: 0 pregabalin [Lyrica] 75 mg Capsule 75 mg PO TID RF: 0 Basaglar KwikPen U-100 Insulin 100 unit/mL (3 mL) Insulin Pen 65 unit SUBCUT QAM RF: 0 cholecalciferol (vitamin D3) [Vitamin D3] 1,000 unit Tablet,Chewable 1,000 unit PO QAM RF: 0 Xarelto 20 mg Tablet 20 mg PO PM RF: 0 rosuvastatin [Crestor] 40 mg Tablet 40 mg PO HS RF: 0 sucralfate [Carafate] 1 gram Tablet 1 g PO TID RF: 0 trazodone 100 mg Tablet 100 mg PO HS RF: 0 Basaglar KwikPen U-100 Insulin 100 unit/mL (3 mL) Insulin Pen 60 unit SUBCUT QPM RF: 0 Ozempic 0.25 mg or 0.5 mg(2 mg/1.5 mL) Pen Injector 0.5 mg SUBCUT WK RF: 0 sucralfate [Carafate] 100 mg/mL Suspension 10 ml PO TID RF: 0 hydroxyzine pamoate [Vistaril] 50 mg Capsule 50 mg PO BID RF: 0 fluvoxamine 100 mg Tablet 100 mg PO HS RF: 0 ascorbic acid (vitamin C) 500 mg Capsule See Rx Instructions .ROUTE .COMPLEX RF: 0 Iron Supplement RF: 0 oxycodone 5 mg tablet 5 mg PO Q6H PRN (Reason: pain, severe) Qty: 14 RF: 0 Discontinued meloxicam 15 mg Tablet 15 mg PO QAM RF: 0 Discharge Orders: Discharge Order (Routine); Ordered 03/06/20 Ordered By: Priyanka Marquez Admission Data Admit Date/Time: 03/05/20 15:22 Attending Provider: Priyanka Marquez Admit Provider: Nahun Liz Primary Care Provider: Marco A Lira Other Providers: Carson Thompson Other Interventions: Discharge Summary Assessment (RN) Last Done: 03/06/20 14:48 DC Date/Time DO NOT enter until pt leaves facility: 03/06/20 15:01
== END 2020-03-06 15:01 | disposition home or self-care (01) ==
LOC: 3E → SUATTDRO 15:22

== ENCOUNTER 2022-05-30 12:24 | Observation (INO) ==
[2022-05-30 14:31] LABS: Basophils # (auto) 0.04 K/uL (0-0.2); Basophils % (auto) 0.6 %; Eosinophils # (auto) 0.17 K/uL (0-0.50); Eosinophils % (auto) 2.7 %; Hematocrit (blood only) 48.2 % (40.1-51.0); Hemoglobin 16.4 g/dl (14.0-18.0); Immature Granulocytes # (auto) 0.07 K/uL (0.00-0.02); Immature Granulocytes % (auto) 1.1 %; Lymphocytes # (auto) 1.54 K/uL (1.2-3.4); Mean Corpuscular Hemoglobin 30.4 pg (25.0-34.0); Mean Corpuscular Volume 89.4 fL (80.0-100.0); Mean Platelet Volume 9.6 fL (9.4-12.4); Monocytes # (auto) 0.58 K/uL (0.24-0.82); Neutrophils # (auto) 4.01 K/uL (1.4-6.5); Neutrophils % (auto) 62.6 %; Platelet Count 227 K/uL (130-400); RDW Coefficient of Variation 12.2 % (11.5-14.5); Red Blood Count 5.39 M/uL (4.63-6.08); White Blood Count 6.41 K/ul (4.8-10.8)
[2022-05-30 14:49] LABS: Albumin Globulin Ratio 1.3 (0.9-2); Albumin Level 4.3 gm/dl (3.4-5.0); BUN Creatinine Ratio 10.3 (10-20); Bilirubin,Total 0.6 mg/dl (0.2-1.0); Calcium 9.8 mg/dl (8.5-10.1); Creatinine Clr Calc Pharmacy 106.8 ml/min; Est GFR (African American) 102.2 ml/min; Est GFR (Non-African American) 88.1 ml/min; Globulin 3.4 gm/dl (2.5-4.0); Potassium 4.4 mmol/L (3.5-5.1); Total Protein 7.7 gm/dl (6.0-8.3)
[2022-05-30] MEDS ORDERED: MoRPHine SULFATE 4 MG/ML 1 ML CARP\\VIAL IV STA (16:19)
[2022-05-30] MEDS ORDERED: ONDANSETRON INJ 2 MG/ML 2 ML VIAL IV STA (16:19)
--- NOTE | 2022-05-30 16:22 | Emergency Department Note ---
Impression & Plan Postoperative edema, Back pain, Post-op pain ED Provider Note NAME: GARRETT BOONE AGE: 52 SEX: M : 1970 ARRIVES VIA: Walk-In INFORMANT: Patient ED PROVIDER(S): Robert Haynes DO CHIEF COMPLAINT: back pain HPI: Patient is a 52-year-old male who presents ER for severe lower back pain. He was seen and evaluated by Dr. Thompson and had surgery done for a spinal stimulator this past Saturday. He notes the pains been getting worse he has been having swelling around the incision site consequently was referred in after being seen in the office today for washout tomorrow. He denies any headache or change in vision. No chest pain or shortness of breath. No new weakness or numbness in the arms or legs. Able to urinate and move his bowels. No other exacerbating or remitting factors. ROS: See above HPI for pertinent positives & negatives. A total of 10 systems reviewed and were otherwise negative. PAST MEDICAL HISTORY:See Below PAST SURGICAL HISTORY:See Below FAMILY HISTORY:See Below SOCIAL HISTORY:See Below HOME MEDICATIONS:See Below ALLERGIES:See Below VITALS:See Below PHYSICAL EXAMINATION: GENERAL: Sitting up in bed, alert, well appearing, well nourished, no distress, non-toxic EYE EXAM: normal conjunctiva. OROPHARYNX: no exudate, no erythema, lips, buccal mucosa, and tongue normal and mucous membranes are moist NECK: supple, no nuchal rigidity, no adenopathy, non-tender LUNGS: Clear to auscultation. Normal chest wall mechanics HEART: no murmurs, S1 normal and S2 normal ABDOMEN: abdomen soft, non-tender, normo-active bowel sounds, no masses, no rebound or guarding. BACK: Back is symmetrical on inspection and there is no deformity, stimulator pocket just right of upper lumbar spine which is slightly bulging. No drainage. Wound is clean dry and intact. UPPER EXTREMITIES: upper extremities are grossly normal. LOWER EXTREMITIES: Flexion and extension of the hips, knees, ankles, and EHL 5/5 bilaterally. Gross sensation is intact. DPs are 2/4 bilateral. NEURO EXAM: Normal sensorium, cranial nerves II-XII grossly intact, normal speech, no gross weakness of arms, no gross weakness of legs. MEDICAL DECISION MAKING: Patient is a 52-year-old male who presents ER referred in by Dr. Thompson for admission for washout of the spinal stimulator which was placed last week. He has been having significant swelling and hematoma around it. Worsening pain. Denies any weakness or numbness in the legs. Able to urinate move his bowels. IV was established blood work was obtained. Labs show no significant leukocytosis or anemia. BMP with LFTs are unremarkable. UA was clean. COVID was negative. Patient was admitted to his service. He was given IV morphine Zofran and fluids while in the ER. Triage Nursing notes reviewed. Limited review of prior medical records performed Vital Signs: reviewed and remarkable for Tachy Differential diagnosis: Differential diagnoses includes but is not limited to lumbar radiculopathy, kidney stone, muscle strain, facture, cauda equina, mass, and disc herniation. ER treatment provided: See below Diagnostics interpreted by me: ECG: none Cardiac Monitoring: An order was placed for continuous cardiac monitoring. The monitor shows a rate of 90 with sinus rhythm. Laboratory studies: As stated above and show below. Imaging studies: See below Consultation(s): Discussed with Dr. Thompson who recommended admission to his service for washout tomorrow Procedures: none Critical Care: None Past Med/Surg History Medical History (Updated 05/30/22 @ 20:50 by Robert Haynes DO) Anemia on iron supplements Anxiety Asthma Uses ProAir once/week. Prescribed Advair but cannot afford it due to insurance issue. Stable and controlled Bipolar disorder Chronic obstructive pulmonary disease Stable and controlled CVA (cerebral vascular accident) 2007 - MEMORY ISSUES- FOLLOWS WITH PCP Depression Diabetes mellitus, type 2 Improved GERD (gastroesophageal reflux disease) WELL CONTROLLED AND STABLE Glaucoma History of DVT (deep vein thrombosis) 2010 - [facility]LE - ON XARELTO - UNK CAUSE - NO ISSUES SINCE ON XARELTO History of pulmonary embolism 2010 - ON XARELTO - NO ISSUES SINCE ON XARELTO Hyperlipidemia Hypertension Hypothyroidism Osteoarthritis Sleep apnea CPAP Spinal stenosis Surgical History (Updated 03/02/20 @ 12:25 by Ellie Neville PA-C) History of arthroscopy of shoulder BL History of cardiac cath 2015 - [facility] [place] - NO STENTS 2009 - [place] - [place] STENTS History of cholecystectomy History of colonoscopy History of esophagogastroduodenoscopy (EGD) History of gastric bypass History of lumbar surgery 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 History of umbilical hernia repair History of uvulopalatopharyngoplasty Hx of nasal septoplasty Family History Mother Family history of diabetes mellitus Sister Family history of diabetes mellitus Brother Family hx of colon cancer Social History Smoking Status: Former smoker Cigarettes Per Day: h/o 1ppd; Second Hand Exposure: Yes; Hx Alcohol Use: No Hx Substance Use: No Preferred Language: Citizen Of [place] Communication Ability: Effective 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 Home Meds Home Medications Medication Instructions Recorded Confirmed aspirin 81 mg chewable tablet 81 mg PO HS 08/03/19 05/30/22 cholecalciferol (vitamin D3) 25 1,000 unit PO QAM 08/03/19 05/30/22 mcg (1,000 unit) chewable tablet (Vitamin D3) cyanocobalamin (vitamin B-12) 1,000 mcg PO QAM 08/03/19 05/30/22 1,000 mcg tablet (Vitamin B-12) cyclobenzaprine 10 mg tablet 20 mg PO HS 08/03/19 05/30/22 gabapentin 300 mg capsule 900 mg PO [facility] 08/03/19 05/30/22 insulin aspart U-100 100 unit/mL [address] [facility] 08/03/19 05/30/22 subcutaneous cartridge (Novolog PenFill U-100 Insulin aspart) insulin glargine 100 unit/mL (3 50 unit subcut QAM 08/03/19 05/30/22 mL) subcutaneous pen (Basaglar KwikPen U-100 Insulin) losartan 25 mg tablet 25 mg PO QAM 08/03/19 05/30/22 pantoprazole 40 mg tablet,delayed 40 mg PO HS 08/03/19 05/30/22 release (Protonix) rivaroxaban 20 mg tablet (Xarelto) 20 mg PO PM 08/03/19 05/30/22 insulin glargine 100 unit/mL (3 20 unit subcut QPM 03/04/20 09/28/22 mL) subcutaneous pen (Basaglar KwikPen U-100 Insulin) trazodone 100 mg tablet 100 mg PO HS 11/04/19 05/30/22 ascorbic acid (vitamin C) 500 mg 500 mg PO DAILY 02/17/20 05/30/22 capsule hydroxyzine pamoate 50 mg capsule 50 mg PO BID 02/17/20 05/30/22 (Vistaril) albuterol sulfate 90 mcg/actuation 2 puff inhalation QID PRN 05/30/22 05/30/22 aerosol inhaler Shortness Of Breath Or Wheezing doxycycline hyclate 100 mg capsule 100 mg PO DAILY 05/30/22 05/30/22 duloxetine 30 mg capsule,delayed 30 mg PO HS 05/30/22 05/30/22 release empagliflozin 25 mg tablet 25 mg PO QAM 05/30/22 05/30/22 (Jardiance) fluoxetine 20 mg capsule 20 mg PO HS 05/30/22 05/30/22 fluoxetine 40 mg capsule 40 mg PO HS 05/30/22 05/30/22 levetiracetam 1,000 mg tablet 1,000 mg PO BID 05/30/22 05/30/22 multivitamin 1 tab PO DAILY 05/30/22 05/30/22 prazosin 1 mg capsule 1 mg PO HS 05/30/22 05/30/22 rosuvastatin 5 mg tablet 5 mg PO QAM 05/30/22 05/30/22 semaglutide 1 mg/dose (4 mg/3 mL) 1 mg subcut WK 05/30/22 05/30/22 subcutaneous pen injector (Ozempic) Results & Data (ED) Vital Signs Vital Signs - 24 hr 05/30/22 12:48 05/30/22 16:37 Temperature 36.2 C L Temperature Source Temporal Artery Scan Pulse Rate 96 H Pulse Rate [Right Finger] 82 Pulse Rhythm [Right Finger] Regular Pulse Strength [Right Finger] Normal Respiratory Rate 20 20 Respiratory Effort / Characteristics Non-Labored Spontaneous Non-Labored Spontaneous Respiratory Depth Normal Normal Blood Pressure 116/78 Blood Pressure [Right Arm] 135/80 Blood Pressure Mean 90 Blood Pressure Mean [Right Arm] 98 Blood Pressure Position [Right Arm] Sitting Pulse Oximetry 95 98 Oxygen Delivery Method Room Air Room Air Sepsis Recent Fever Within 48 Hours No Sepsis New/Unexplained Change in Mental Status No Sepsis Action Taken by Nursing No Action Required Laboratory Data Result diagrams: 05/30/22 14:09 05/30/22 14:09 Lab Results 05/30/22 05/30/22 05/30/22 Range/Units 14:09 14:09 16:30 WBC 6.41 (4.8-10.8) K/ul RBC 5.39 (4.63-6.08) M/uL Hgb 16.4 (14.0-18.0) g/dl Hct 48.2 (40.1-51.0) % MCV 89.4 (80.0-100.0) fL MCH 30.4 (25.0-34.0) pg MCHC 34.0 (32.0-36.0) g/dL RDW Std Deviation 40.0 (36.4-46.3) fL RDW Coeff of Tommy 12.2 (11.5-14.5) % Plt Count 227 (130-400) K/uL MPV 9.6 (9.4-12.4) fL Immature Gran % (Auto) 1.1 % Neut % (Auto) 62.6 % Lymph % (Auto) 24.0 % [place] % (Auto) 9.0 % Eos % (Auto) 2.7 % Baso % (Auto) 0.6 % Neut # (Auto) 4.01 (1.4-6.5) K/uL Lymph # (Auto) 1.54 (1.2-3.4) K/uL [place] # (Auto) 0.58 (0.24-0.82) K/uL Eos # (Auto) 0.17 (0-0.50) K/uL Baso # (Auto) 0.04 (0-0.2) K/uL Immature Gran # (Auto) 0.07 H (0.00-0.02) K/uL Sodium 141 (136-145) mmol/L Potassium 4.4 (3.5-5.1) mmol/L Chloride 104 (98-107) mmol/L Carbon Dioxide 32 (21-32) mmol/L Anion Gap 5 (3-11) BUN 10 (6-23) mg/dl Creatinine 0.97 (0.6-1.4) mg/dl Est Cr Clr Drug Dosing 106.8 ml/min Est GFR ( Amer) 102.2 ml/min Est GFR (Non-Af Amer) 88.1 ml/min BUN/Creatinine Ratio 10.3 (10-20) Glucose 136 H (70-99(Fasting)) mg/dl Calcium 9.8 (8.5-10.1) mg/dl Total Bilirubin 0.6 (0.2-1.0) mg/dl AST 13 (13-39) U/L ALT 11 (7-52) U/L Alkaline Phosphatase 71 (34-104) U/L Total Protein 7.7 (6.0-8.3) gm/dl Albumin 4.3 (3.4-5.0) gm/dl Globulin 3.4 (2.5-4.0) gm/dl Albumin/Globulin Ratio 1.3 (0.9-2) SARS-CoV-2, RNA, NAAT NEGATIVE (NEGATIVE) Administered Medications Discontinued Medications Morphine Sulfate (Morphine Sulfate 4 Mg/Ml 1 Ml Carp\Vial) 4 mg IV NOW STA Stop: 05/30/22 16:20 Last Admin: 05/30/22 16:32 Dose: 4 mg Documented By: AM Ondansetron HCl (Ondansetron Inj 2 Mg/Ml 2 Ml Vial) 4 mg IV NOW STA Stop: 05/30/22 16:20 Last Admin: 05/30/22 16:30 Dose: 4 mg Documented By: AM Discharge Plan Visit Data Chief Complaint: Back Injury/Pain Stated Complaint: POCKET OF BLOOD AROUND SURGERY SITE ED Provider: Robert Haynes Discharge Problem: Postoperative edema, Back pain, Post-op pain Patient Disposition: Admitted As Inpatient Discharge Instructions Interventions: ED Discharge Assessment Last Done: 05/30/22 20:19
[2022-05-30 20:47] LABS: Appearance Urine Clear (Clear); Bilirubin Urine Negative (Negative); Blood Urine Negative (Negative); Color Urine Yellow; Glucose Urine UA 3+ (Negative); Ketones Urine Negative (Negative); Leukocyte Esterase Urine Negative (Negative); Nitrite Urine Negative (Negative); Protein Urine Negative (Negative); Specific Gravity Urine 1.042 (1.000-1.030); Urobilinogen Urine Negative (Negative); pH Urine 5.5 (4.5-7.5)
[2022-05-30] MEDS ORDERED: ALBUTEROL HFA 8 GM INHALER INH PRN (21:32)
[2022-05-30] MEDS ORDERED: ACETAMINOPHEN 500 MG TAB PO PRN (21:32)
[2022-05-30] MEDS ORDERED: ONDANSETRON INJ 2 MG/ML 2 ML VIAL IV PRN (21:32)
[2022-05-30] MEDS ORDERED: ACETAMINOPHEN 1,000 MG/100 ML VIAL IV PRN (21:32)
[2022-05-30] MEDS ORDERED: NALOXONE HCL 0.4 MG/1 ML VIAL/CARP IV PRN (21:32)
[2022-05-30] MEDS ORDERED: levETIRAcetam 500 MG TAB PO SCH (21:32)
[2022-05-30] MEDS ORDERED: FLUoxetine HCL 20 MG CAP PO SCH ×2 (21:32)
[2022-05-30] MEDS ORDERED: PANTOprazole 40 MG TAB PO SCH (21:32)
[2022-05-30] MEDS ORDERED: LORazepam 0.5 MG TAB PO PRN (21:32)
[2022-05-30] MEDS ORDERED: DULoxetine HCL 30 MG CAP PO SCH (21:32)
[2022-05-30] MEDS ORDERED: PHARMACY GLYCEMIC MGMT CONSULT PRN (21:32)
[2022-05-30] MEDS ORDERED: LORazepam 0.5 MG in SYRINGE 0.25 ML IV PRN (21:32)
[2022-05-30] MEDS ORDERED: PROMETHAZINE HCL 12.5 MG in SODIUM CHLORIDE 0.9% 50 ML IV PRN (21:32)
[2022-05-30] MEDS ORDERED: HYDROmorphone INJ 1 MG/ML SYRINGE IV PRN (21:32)
[2022-05-30] MEDS ORDERED: ASPIRIN 81 MG CHEW PO SCH (21:32)
[2022-05-30] MEDS ORDERED: PRAZOSIN HCL 1 MG CAP PO SCH (21:32)
[2022-05-30] MEDS ORDERED: traZODone HCL 100 MG TAB PO SCH (21:32)
[2022-05-30] MEDS ORDERED: ONDANSETRON 4 MG OD TAB PO PRN (21:32)
[2022-05-30] MEDS ORDERED: HYDROmorphone INJ 0.5 MG/0.5 ML SYR IV PRN (21:32)
[2022-05-30] MEDS ORDERED: CYCLOBENZAPRINE HCL 10 MG TAB PO SCH (21:32)
[2022-05-30] MEDS ORDERED: METOCLOPRAMIDE HCL INJ 5 MG/ML 2 ML VIAL IV PRN (21:32)
[2022-05-30] MEDS: SODIUM CHLORIDE 0.9% 1000ML 1,000 ML IV SCH (22:12)
[2022-05-30] MEDS: oxyCODONE HCL IR 5 MG TAB (IMMEDIATE RELEASE) PO PRN (22:12)
[2022-05-30] MEDS ORDERED: GLUCAGON FOR INJ 1 MG VIAL SQ PRN (22:15)
[2022-05-30] MEDS ORDERED: DEXTROSE 50% 50 ML SYRINGE IV PRN (22:15)
[2022-05-30] MEDS ORDERED: CARBOHYDRATES FOR HYPOGLYCEMIA PO PRN (22:15)
[2022-05-30] MEDS ORDERED: GLUCOSE 40% GEL 15 GM TUBE PO PRN (22:15)
[2022-05-30] MEDS ORDERED: GLUCOSE 10 TAB/TUBE PO PRN (22:15)
[2022-05-30] MEDS: hydrOXYzine HCl 25 MG TAB PO SCH (22:55)
[2022-05-30] MEDS: GABAPENTIN 300 MG CAP PO SCH (22:56)
--- NOTE | 2022-05-31 01:08 | Hospitalist Consultation ---
Date of Consultation May 31, 2022 Assessment & Plan (1) Post-op pain: Final Assessment and Recommendations as follows : Postop back pain/hematoma Recent spinal stimulator placement Patient on Eliquis for PE DVT/ hx factor V Leiden mutation as per records COPD, LORENA on CPAP, pulmonary status stable hypertension, elevated hyperlipidemia, on statin Rx DM2 insulin requiring, well-controlled as of recent hemoglobin A1c of 6.4 this month Hx TIA seizure disorder, stable on Keppra (dose recently increased to 1500 mg PO twice daily dosing after breakthrough seizure last month) past tobacco abuse. Management of back issues as per surgery. Resume Eliquis once bleeding risk is deemed to be minimal and negligible pending Orthopedics evaluation. Titrate home BP meds Continue current home Keppra dose. Hold parameters for sedation/confusion on patient's multiple neuropsychotropic medications. Pharmacy glycemic control for DM management as per admission orders. DVT prophylaxis. SCDs as per admission orders while Eliquis on hold Thank you much for this consultation. Dr. Romero will follow patient's progress. Text document was generated using [employer] voice recognition software. It may contain grammatical or spelling errors. Kindly contact undersigned for clarification of any documentation item in question. History of Present Illness Reason for Consultation: Medical management Requesting Physician: Dr. Thompson Attending Physician: Carson Thompson DO History of Present Illness PCP : Dr. Ross History obtained from patient and records. Medical history significant for COPD, LORENA status post surgery on CPAP, PE DVT on Eliquis, factor V Leiden mutation as per records, hypertension, hyperlipidemia, DM2 insulin requiring, TIA, seizure disorder, mood disorder, past tobacco abuse. Last confinement March 2020 for post cervical spine surgery edema. Patient had spinal stimulator placement for chronic back pain at [facility] [place] office last week. Eliquis for history of blood clots uninterrupted postprocedure. Post procedure, patient noted worsening pain and swelling around incision site on the low back.. No fever, no chills, no chest pain, no shortness of breath. Patient evaluated at surgeon's office yesterday. Concern for hematoma as per patient.. Patient directed to ER for ER for evaluation and subsequently admitted under Orthopedics Spine service. 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 Home Medications Medication Instructions Recorded Confirmed Type aspirin 81 mg chewable tablet 81 mg PO HS 08/03/19 05/30/22 History cholecalciferol (vitamin D3) 25 1,000 unit PO QAM 08/03/19 05/30/22 History mcg (1,000 unit) chewable tablet (Vitamin D3) cyanocobalamin (vitamin B-12) 1,000 mcg PO QAM 08/03/19 05/30/22 History 1,000 mcg tablet (Vitamin B-12) cyclobenzaprine 10 mg tablet 20 mg PO HS 08/03/19 05/30/22 History gabapentin 300 mg capsule 900 mg PO AMHS 08/03/19 05/30/22 History insulin aspart U-100 100 unit/mL 0 unit subcut ACHS 08/03/19 05/30/22 History subcutaneous cartridge (Novolog PenFill U-100 Insulin aspart) insulin glargine 100 unit/mL (3 50 unit subcut QAM 08/03/19 05/30/22 History mL) subcutaneous pen (Basaglar KwikPen U-100 Insulin) losartan 25 mg tablet 25 mg PO QAM 08/03/19 05/30/22 History pantoprazole 40 mg tablet,delayed 40 mg PO HS 08/03/19 05/30/22 History release (Protonix) rivaroxaban 20 mg tablet (Xarelto) 20 mg PO PM 08/03/19 05/30/22 History insulin glargine 100 unit/mL (3 20 unit subcut QPM 11/04/19 05/30/22 History mL) subcutaneous pen (Basaglar KwikPen U-100 Insulin) trazodone 100 mg tablet 100 mg PO HS 11/04/19 05/30/22 History ascorbic acid (vitamin C) 500 mg 500 mg PO DAILY 02/17/20 05/30/22 History capsule hydroxyzine pamoate 50 mg capsule 50 mg PO BID 02/17/20 05/30/22 History (Vistaril) albuterol sulfate 90 mcg/actuation 2 puff inhalation QID PRN 05/30/22 05/30/22 History aerosol inhaler Shortness Of Breath Or Wheezing doxycycline hyclate 100 mg capsule 100 mg PO DAILY 05/30/22 05/30/22 History duloxetine 30 mg capsule,delayed 30 mg PO HS 05/30/22 05/30/22 History release empagliflozin 25 mg tablet 25 mg PO QAM 05/30/22 05/30/22 History (Jardiance) fluoxetine 20 mg capsule 20 mg PO HS 05/30/22 05/30/22 History fluoxetine 40 mg capsule 40 mg PO HS 05/30/22 05/30/22 History levetiracetam 1,000 mg tablet 1,500 mg PO BID 05/30/22 05/31/22 History multivitamin 1 tab PO DAILY 05/30/22 05/30/22 History prazosin 1 mg capsule 1 mg PO HS 05/30/22 05/30/22 History rosuvastatin 5 mg tablet 5 mg PO QAM 05/30/22 05/30/22 History semaglutide 1 mg/dose (4 mg/3 mL) 1 mg subcut WK 05/30/22 05/30/22 History subcutaneous pen injector (Ozempic) Patient History Medical History Anemia on iron supplements Anxiety Asthma Uses ProAir once/week. Prescribed Advair but cannot afford it due to insurance issue. Stable and controlled Bipolar disorder Chronic obstructive pulmonary disease Stable and controlled CVA (cerebral vascular accident) 2007 - MEMORY ISSUES- FOLLOWS WITH PCP Depression Diabetes mellitus, type 2 Improved GERD (gastroesophageal reflux disease) WELL CONTROLLED AND STABLE Glaucoma History of DVT (deep vein thrombosis) 2010 - RLE - ON XARELTO - UNK CAUSE - NO ISSUES SINCE ON XARELTO History of pulmonary embolism 2010 - ON XARELTO - NO ISSUES SINCE ON XARELTO Hyperlipidemia Hypertension Hypothyroidism Osteoarthritis Sleep apnea CPAP Spinal stenosis Surgical History History of arthroscopy of shoulder BL History of cardiac cath 2015 - [facility] - NO STENTS 2009 - [place] - [place] STENTS History of cholecystectomy History of colonoscopy History of esophagogastroduodenoscopy (EGD) History of gastric bypass History of lumbar surgery 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 History of umbilical hernia repair History of uvulopalatopharyngoplasty Hx of nasal septoplasty Family History Mother Family history of diabetes mellitus Sister Family history of diabetes mellitus Brother Family hx of colon cancer Social History Smoking Status: Former smoker Cigarettes Per Day: h/o 1ppd; Second Hand Exposure: Yes; Do You Dip or Chew Tobacco: No; Tobacco Cessation Education Requested by Patient: No Hx Alcohol Use: No Hx Substance Use: No Preferred Language: Estonian Communication Ability: Effective 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 Beliefs That Will Affect Care: None Current Living Situation: Spouse Other Information That Helps Us Care for You: No Feels Safe at Home: Yes Safety Concerns: Feels Safe At This Time Assistive Devices: None Review of Systems Review of Systems: As per HPI, all other systems reviewed and negative Physical Exam Physical Exam: GENERAL: Comfortable, pleasant, obese, no respiratory distress SKIN: Normal color, warm HEENT: [place] palpebral conjunctivae, no ptosis, dry buccal mucosa NECK : Supple, short neck, no tenderness CHEST : Decreased breath sounds,, no tenderness HEART : RRR, no obvious murmurs ABDOMEN: Some distention, nontender BACK : Tender low back swelling EXTREMITIES : Minimal LE swelling/tenderness, no other conspicuous deformities noted NEUROLOGIC : Coherent, no facial asymmetry, no other gross focality Results & Data Results & Data ([facility]) Vital Signs (Past 12 Hours) Vital Signs Temp Pulse Resp BP Pulse Ox O2 Del Method 05/30/22 20:38 36.6 C 90 18 160/95 H 97 Room Air 05/30/22 18:39 80 20 141/87 H 96 Room Air 05/30/22 16:37 82 20 135/80 98 Room Air Laboratory Results Laboratory Results WBC 6.41 K/ul (4.8-10.8) 05/30/22 14:09 RBC 5.39 M/uL (4.63-6.08) 05/30/22 14:09 Hgb 16.4 g/dl (14.0-18.0) 05/30/22 14:09 Hct 48.2 % (40.1-51.0) 05/30/22 14:09 MCV 89.4 fL (80.0-100.0) 05/30/22 14:09 MCH 30.4 pg (25.0-34.0) 05/30/22 14:09 MCHC 34.0 g/dL (32.0-36.0) 05/30/22 14:09 RDW Std Deviation 40.0 fL (36.4-46.3) 05/30/22 14:09 RDW Coeff of Tommy 12.2 % (11.5-14.5) 05/30/22 14:09 Plt Count 227 K/uL (130-400) 05/30/22 14:09 MPV 9.6 fL (9.4-12.4) 05/30/22 14:09 Immature Gran % (Auto) 1.1 % 05/30/22 14:09 Neut % (Auto) 62.6 % 05/30/22 14:09 Lymph % (Auto) 24.0 % 05/30/22 14:09 [place] % (Auto) 9.0 % 05/30/22 14:09 Eos % (Auto) 2.7 % 05/30/22 14:09 Baso % (Auto) 0.6 % 05/30/22 14:09 Neut # (Auto) 4.01 K/uL (1.4-6.5) 05/30/22 14:09 Lymph # (Auto) 1.54 K/uL (1.2-3.4) 05/30/22 14:09 [place] # (Auto) 0.58 K/uL (0.24-0.82) 05/30/22 14:09 Eos # (Auto) 0.17 K/uL (0-0.50) 05/30/22 14:09 Baso # (Auto) 0.04 K/uL (0-0.2) 05/30/22 14:09 Immature Gran # (Auto) 0.07 K/uL (0.00-0.02) H 05/30/22 14:09 Sodium 141 mmol/L (136-145) 05/30/22 14:09 Potassium 4.4 mmol/L (3.5-5.1) 05/30/22 14:09 Chloride 104 mmol/L (98-107) 05/30/22 14:09 Carbon Dioxide 32 mmol/L (21-32) 05/30/22 14:09 Anion Gap 5 (3-11) 05/30/22 14:09 BUN 10 mg/dl (6-23) 05/30/22 14:09 Creatinine 0.97 mg/dl (0.6-1.4) 05/30/22 14:09 Est Cr Clr Drug Dosing 106.8 ml/min 05/30/22 14:09 Est GFR ( Amer) 102.2 ml/min 05/30/22 14:09 Est GFR (Non-Af Amer) 88.1 ml/min 05/30/22 14:09 BUN/Creatinine Ratio 10.3 (10-20) 05/30/22 14:09 Glucose 136 mg/dl (70-99(Fasting)) H 05/30/22 14:09 POC Glucose 107 mg/dl (70-99) H 05/30/22 23:55 Calcium 9.8 mg/dl (8.5-10.1) 05/30/22 14:09 Total Bilirubin 0.6 mg/dl (0.2-1.0) 05/30/22 14:09 AST 13 U/L (13-39) 05/30/22 14:09 ALT 11 U/L (7-52) 05/30/22 14:09 Alkaline Phosphatase 71 U/L (34-104) 05/30/22 14:09 Total Protein 7.7 gm/dl (6.0-8.3) 05/30/22 14:09 Albumin 4.3 gm/dl (3.4-5.0) 05/30/22 14:09 Globulin 3.4 gm/dl (2.5-4.0) 05/30/22 14:09 Albumin/Globulin Ratio 1.3 (0.9-2) 05/30/22 14:09 Urine Color Yellow 05/30/22 20:10 Urine Appearance Clear (Clear) 05/30/22 20:10 Urine pH 5.5 (4.5-7.5) 05/30/22 20:10 Ur Specific [place] 1.042 (1.000-1.030) H 05/30/22 20:10 Urine Protein Negative (Negative) 05/30/22 20:10 Urine Glucose (UA) 3+ (Negative) H 05/30/22 20:10 Urine Ketones Negative (Negative) 05/30/22 20:10 Urine Blood Negative (Negative) 05/30/22 20:10 Urine Nitrite Negative (Negative) 05/30/22 20:10 Urine Bilirubin Negative (Negative) 05/30/22 20:10 Urine Urobilinogen Negative (Negative) 05/30/22 20:10 Ur Leukocyte Esterase Negative (Negative) 05/30/22 20:10 SARS-CoV-2, RNA, NAAT NEGATIVE (NEGATIVE) 05/30/22 16:30
[2022-05-31] MEDS: INSULIN ASPART PER UNIT SC SCH ×3 (04:17→12:01)
[2022-05-31] MEDS ORDERED: ceFAZolin 2000MG 2,000 MG/15 ML SYR IV SCH (06:00)
[2022-05-31] MEDS ORDERED: levETIRAcetam 500 MG TAB PO SCH (06:15)
[2022-05-31] MEDS: GABAPENTIN 300 MG CAP PO SCH (08:03)
[2022-05-31] MEDS: oxyCODONE HCL IR 5 MG TAB (IMMEDIATE RELEASE) PO PRN (08:03)
[2022-05-31] MEDS: hydrOXYzine HCl 25 MG TAB PO SCH (08:05)
--- NOTE | 2022-05-31 08:09 | History & Physical Report ---
Date of Service May 31, 2022 Assessment & Plan (1) Postoperative hematoma: Plan: Assessment hematoma at the spinal cord stimulator battery site. Plan at this time he is n.p.o. we will plan for evacuation of the hematoma today and hopefully discharge home this evening. Admission and Anticipated Discharge Date Admission Date: May 30, 2022 History of Present Illness Chief Complaint: Swelling over the spinal cord stimulator battery site Primary Care Provider: Rebecca Ross DO This is a 52-year-old male well-known to me this approximately 1 week status post dorsal column stimulator placement. He is developed a significant hematoma over the battery site creating significant pain and swelling. Subsequent is here for evaluation and evacuation of hematoma. Allergies Allergy/AdvReac Type Severity Reaction Status Date / Time risperidone Allergy Severe TONGUE Verified 05/30/22 17:15 SWELLING. Home Medications Medication Instructions Recorded Confirmed Type aspirin 81 mg chewable tablet 81 mg PO HS 08/03/19 05/30/22 History cholecalciferol (vitamin D3) 25 1,000 unit PO QAM 08/03/19 05/30/22 History mcg (1,000 unit) chewable tablet (Vitamin D3) cyanocobalamin (vitamin B-12) 1,000 mcg PO QAM 08/03/19 05/30/22 History 1,000 mcg tablet (Vitamin B-12) cyclobenzaprine 10 mg tablet 20 mg PO HS 08/03/19 05/30/22 History gabapentin 300 mg capsule 900 mg PO [facility] 08/03/19 05/30/22 History insulin aspart U-100 100 unit/mL 0 unit subcut [facility] 08/03/19 05/30/22 History subcutaneous cartridge (Novolog PenFill U-100 Insulin aspart) insulin glargine 100 unit/mL (3 50 unit subcut QAM 08/03/19 05/30/22 History mL) subcutaneous pen (Basaglar KwikPen U-100 Insulin) losartan 25 mg tablet 25 mg PO QAM 08/03/19 05/30/22 History pantoprazole 40 mg tablet,delayed 40 mg PO HS 08/03/19 05/30/22 History release (Protonix) rivaroxaban 20 mg tablet (Xarelto) 20 mg PO PM 08/03/19 05/30/22 History insulin glargine 100 unit/mL (3 20 unit subcut QPM 11/04/19 05/30/22 History mL) subcutaneous pen (Basaglar KwikPen U-100 Insulin) trazodone 100 mg tablet 100 mg PO HS 11/04/19 05/30/22 History ascorbic acid (vitamin C) 500 mg 500 mg PO DAILY 02/17/20 05/30/22 History capsule hydroxyzine pamoate 50 mg capsule 50 mg PO BID 02/17/20 05/30/22 History (Vistaril) albuterol sulfate 90 mcg/actuation 2 puff inhalation QID PRN 05/30/22 05/30/22 History aerosol inhaler Shortness Of Breath Or Wheezing doxycycline hyclate 100 mg capsule 100 mg PO DAILY 05/30/22 05/30/22 History duloxetine 30 mg capsule,delayed 30 mg PO HS 05/30/22 05/30/22 History release empagliflozin 25 mg tablet 25 mg PO QAM 05/30/22 05/30/22 History (Jardiance) fluoxetine 20 mg capsule 20 mg PO HS 05/30/22 05/30/22 History fluoxetine 40 mg capsule 40 mg PO HS 05/30/22 05/30/22 History levetiracetam 1,000 mg tablet 1,500 mg PO BID 05/30/22 05/31/22 History multivitamin 1 tab PO DAILY 05/30/22 05/30/22 History prazosin 1 mg capsule 1 mg PO HS 05/30/22 05/30/22 History rosuvastatin 5 mg tablet 5 mg PO QAM 05/30/22 05/30/22 History semaglutide 1 mg/dose (4 mg/3 mL) 1 mg subcut WK 05/30/22 05/30/22 History subcutaneous pen injector (Ozempic) Past Med/Surg History Medical History (Updated 05/31/22 @ 08:08 by Carson Thompson DO) Anemia on iron supplements Anxiety Asthma Uses ProAir once/week. Prescribed Advair but cannot afford it due to insurance issue. Stable and controlled Bipolar disorder Chronic obstructive pulmonary disease Stable and controlled CVA (cerebral vascular accident) 2007 - MEMORY ISSUES- FOLLOWS WITH PCP Depression Diabetes mellitus, type 2 Improved GERD (gastroesophageal reflux disease) WELL CONTROLLED AND STABLE Glaucoma History of DVT (deep vein thrombosis) 2010 - RLE - ON XARELTO - UNK CAUSE - NO ISSUES SINCE ON XARELTO History of pulmonary embolism 2010 - ON XARELTO - NO ISSUES SINCE ON XARELTO Hyperlipidemia Hypertension Hypothyroidism Osteoarthritis Sleep apnea CPAP Spinal stenosis Surgical History (Updated 03/02/20 @ 12:25 by Ellie Neville PA-C) History of arthroscopy of shoulder BL History of cardiac cath 2015 - [facility] [place] - NO STENTS 2010 - [place] - [place] STENTS History of cholecystectomy History of colonoscopy History of esophagogastroduodenoscopy (EGD) History of gastric bypass History of lumbar surgery 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 History of umbilical hernia repair History of uvulopalatopharyngoplasty Hx of nasal septoplasty Family History Mother Family history of diabetes mellitus Sister Family history of diabetes mellitus Brother Family hx of colon cancer Social History Smoking Status: Former smoker Cigarettes Per Day: h/o 1ppd; Second Hand Exposure: Yes; Do You Dip or Chew Tobacco: No; Tobacco Cessation Education Requested by Patient: No Hx Alcohol Use: No Hx Substance Use: No Preferred Language: Citizen Of [place] Communication Ability: Effective Classification And Treatment Director Required: No Beliefs That Will Affect Care: None Current Living Situation: Spouse Other Information That Helps Us Care for You: No Feels Safe at Home: Yes Safety Concerns: Feels Safe At This Time Assistive Devices: None Physical Exam Physical Exam: Patient is alert and oriented. He is neurologically intact. He has marked swelling over his dorsal come stimulator battery site consistent with a postop hematoma. Results & Data Results & Data ([facility]) Vital Signs (Past 12 Hours) Vital Signs Temp Pulse Resp BP Pulse Ox O2 Del Method 05/31/22 07:37 36.6 C 76 20 121/72 95 Room Air 05/30/22 20:38 36.6 C 90 18 160/95 H 97 Room Air Code Status & VTE Plan VTE Prophylaxis Plan VTE Prophylaxis will be ordered: Yes
--- NOTE | 2022-05-31 08:30 | Anesthesiology Consultation ---
Date of Service May 31, 2022 Assessment & Plan Chart Review Chart Review: Acceptable Risk for Surgery and Patient NOT seen in Pre Admission Testing Consults Requested none ASA ASA4 Proposed Anesthesia Anesthesia Type: General History Surgery Operation Date: 05/31/22 09:35 Proposed Procedures p Evacuation Hematoma Right Flank - Carson Thompson DO Height/Weight Height: 6 ft Weight: 112.627 kg Allergies Allergy/AdvReac Type Severity Reaction Status Date / Time risperidone Allergy Severe TONGUE Verified 05/30/22 17:15 SWELLING. Medications Home Medications Medication Instructions Recorded Confirmed Last Taken aspirin 81 mg chewable tablet 81 mg PO HS 08/03/19 05/30/22 05/29/22 cholecalciferol (vitamin D3) 25 1,000 unit PO QAM 08/03/19 05/30/22 05/30/22 mcg (1,000 unit) chewable tablet (Vitamin D3) cyanocobalamin (vitamin B-12) 1,000 mcg PO QAM 08/03/19 05/30/22 05/30/22 1,000 mcg tablet (Vitamin B-12) cyclobenzaprine 10 mg tablet 20 mg PO HS 08/03/19 05/30/22 05/29/22 gabapentin 300 mg capsule 900 mg PO [facility] 08/03/19 05/30/22 05/30/22 insulin aspart U-100 100 unit/mL 0 unit subcut [facility] 08/03/19 05/30/22 05/30/22 subcutaneous cartridge (Novolog PenFill U-100 Insulin aspart) insulin glargine 100 unit/mL (3 50 unit subcut QAM 08/03/19 05/30/22 05/30/22 mL) subcutaneous pen (Basaglar KwikPen U-100 Insulin) losartan 25 mg tablet 25 mg PO QAM 08/03/19 05/30/22 05/30/22 pantoprazole 40 mg tablet,delayed 40 mg PO HS 08/03/19 05/30/22 05/29/22 release (Protonix) rivaroxaban 20 mg tablet (Xarelto) 20 mg PO PM 08/03/19 05/30/22 05/29/22 insulin glargine 100 unit/mL (3 20 unit subcut QPM 11/04/19 05/30/22 03/01/20 21:00 mL) subcutaneous pen (Basaglar 55 units KwikPen U-100 Insulin) trazodone 100 mg tablet 100 mg PO HS 11/04/19 05/30/22 05/29/22 ascorbic acid (vitamin C) 500 mg 500 mg PO DAILY 02/17/20 05/30/22 05/30/22 capsule hydroxyzine pamoate 50 mg capsule 50 mg PO BID 02/17/20 05/30/22 05/30/22 (Vistaril) albuterol sulfate 90 mcg/actuation 2 puff inhalation QID PRN 05/30/22 05/30/22 Unknown aerosol inhaler Shortness Of Breath Or Wheezing doxycycline hyclate 100 mg capsule 100 mg PO DAILY 05/30/22 05/30/22 05/30/22 duloxetine 30 mg capsule,delayed 30 mg PO HS 05/30/22 05/30/22 05/29/22 release empagliflozin 25 mg tablet 25 mg PO QA 05/30/22 05/30/22 05/30/22 (Jardiance) fluoxetine 20 mg capsule 20 mg PO HS 05/30/22 05/30/22 05/29/22 fluoxetine 40 mg capsule 40 mg PO HS 05/30/22 05/30/22 05/29/22 levetiracetam 1,000 mg tablet 1,500 mg PO BID 05/30/22 05/31/22 Unknown multivitamin 1 tab PO DAILY 05/30/22 05/30/22 05/30/22 prazosin 1 mg capsule 1 mg PO HS 05/30/22 05/30/22 05/29/22 rosuvastatin 5 mg tablet 5 mg PO QAM 05/30/22 05/30/22 05/30/22 semaglutide 1 mg/dose (4 mg/3 mL) 1 mg subcut WK 05/30/22 05/30/22 05/28/22 subcutaneous pen injector (Ozempic) Active Medications Generic Name Dose Route Start Last Admin Trade Name Freq PRN Reason Stop Dose Admin Aspirin 81 mg 05/30/22 21:32 05/30/22 22:53 Aspirin 81 Mg Chew PO 06/29/22 21:31 81 mg HS KATHERIN Administration Cyclobenzaprine HCl 20 mg 05/30/22 21:32 05/30/22 22:58 Cyclobenzaprine Hcl 10 Mg Tab PO 06/29/22 21:31 20 mg HS KATHERIN Administration Duloxetine HCl 30 mg 05/30/22 21:32 05/30/22 22:54 Duloxetine Hcl 30 Mg Cap PO 06/29/22 21:31 30 mg HS KATHERIN Administration Fluoxetine HCl 60 mg 05/30/22 21:32 05/30/22 22:54 Fluoxetine Hcl 20 Mg Cap PO 06/29/22 21:31 60 mg HS KATHERIN Administration Gabapentin 900 mg 05/30/22 21:32 05/31/22 08:03 Gabapentin 300 Mg Cap PO 06/29/22 21:31 900 mg BID KATHERIN Administration Hydroxyzine HCl 50 mg 05/30/22 21:32 05/31/22 08:05 Hydroxyzine Hcl 25 Mg Tab PO 06/29/22 21:31 50 mg BID KATHERIN Administration Sodium Chloride 1,000 mls @ 60 mls/hr 05/30/22 21:32 05/31/22 07:54 Nss 1000ml IV 06/29/22 21:31 60 mls/hr .[id number] KATHERIN Infusion Insulin Aspart 0 units 05/31/22 00:00 05/31/22 05:56 Insulin Aspart Per Unit SC 06/30/22 00:00 Not Given Q6 KATHERIN Losartan Potassium 25 mg 05/31/22 09:00 05/31/22 08:04 Losartan Potassium 25 Mg Tab PO 06/30/22 08:59 25 mg QAM KATHERIN Administration Multivitamins 1 tab 05/31/22 09:00 05/31/22 08:05 Multivitamin Tab PO 06/30/22 08:59 1 tab DAILY KATHERIN Administration Oxycodone HCl 5 - 10 mg 05/30/22 21:32 05/31/22 08:03 Oxycodone Hcl Ir 5 Mg Tab (Immediate Release) PO 06/13/22 21:31 10 mg Q4H PRN Administration mod to severe pain Pantoprazole Sodium 40 mg 05/30/22 21:32 05/30/22 22:57 Pantoprazole 40 Mg Tab PO 06/29/22 21:31 40 mg HS KATHERIN Administration Prazosin HCl 1 mg 05/30/22 21:32 05/30/22 22:58 Prazosin Hcl 1 Mg Cap PO 06/29/22 21:31 1 mg HS KATHERIN Administration Rosuvastatin Calcium 5 mg 05/31/22 09:00 09/29/22 08:05 Rosuvastatin Calcium 5 Mg Tab PO 06/30/22 08:59 5 mg QAM KATHERIN Administration Trazodone HCl 100 mg 05/30/22 21:32 05/30/22 22:58 Trazodone Hcl 100 Mg Tab PO 06/29/22 21:31 100 mg HS KATHERIN Administration Vitamin D 1,000 units 05/31/22 09:00 05/31/22 08:04 Cholecalciferol 1,000 Units 25 Mcg Tab PO 06/30/22 08:59 1,000 units QAM KATHERIN Administration Past Medical History Medical History Anemia on iron supplements Anxiety Asthma Uses ProAir once/week. Prescribed Advair but cannot afford it due to insurance issue. Stable and controlled Bipolar disorder Chronic obstructive pulmonary disease Stable and controlled CVA (cerebral vascular accident) 2007 - [facility]- FOLLOWS WITH PCP Depression Diabetes mellitus, type 2 Improved GERD (gastroesophageal reflux disease) WELL CONTROLLED AND STABLE Glaucoma History of DVT (deep vein thrombosis) 2010 - [facility] - ON XARELTO - UNK CAUSE - NO ISSUES SINCE ON XARELTO History of pulmonary embolism 2010 - ON [place] - NO ISSUES SINCE ON XARELTO Hyperlipidemia Hypertension Hypothyroidism Osteoarthritis Sleep apnea CPAP Spinal stenosis Exercise / Class Metabolic Activity III < 4 Walking/Shop/Light housework Past Family History Family History Mother Family history of diabetes mellitus Sister Family history of diabetes mellitus Brother Family hx of colon cancer Past Surgical History Surgical History History of arthroscopy of shoulder BL History of cardiac cath 2015 - [facility] - NO STENTS 2009 - [place] - NO STENTS History of cholecystectomy History of colonoscopy History of esophagogastroduodenoscopy (EGD) History of gastric bypass History of lumbar surgery 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 History of umbilical hernia repair History of uvulopalatopharyngoplasty Hx of nasal septoplasty Past Anesthesia History No Hx of Anesthesia Complications and No Family Hx of Anesthesia Complications History of PONV No Hx of PONV and No Hx of Motion Sickness Social History Smoking Status: Former smoker tobacco type: cigarettes Smoking cigarettes per day: h/o 1ppd Do You Dip or Chew Tobacco: No Hx Alcohol Use: No Hx Substance Use: No substance use type: does not use Physical Exam Vital Signs Last Vital Signs Temp 36.6 C 05/31/22 07:37 Pulse 76 05/31/22 07:37 Resp 20 05/31/22 07:37 BP 121/72 05/31/22 07:37 Pulse Ox 95 05/31/22 07:37 O2 Del Method 05/31/22 07:37 Testing Laboratory Results 05/30/22 14:09 05/30/22 14:09 Urine Color Yellow 05/30/22 20:10 Urine Appearance Clear (Clear) 05/30/22 20:10 Urine pH 5.5 (4.5-7.5) 05/30/22 20:10 Ur Specific [place] 1.042 (1.000-1.030) H 05/30/22 20:10 Urine Protein Negative (Negative) 05/30/22 20:10 Urine Glucose (UA) 3+ (Negative) H 05/30/22 20:10 Urine Ketones Negative (Negative) 05/30/22 20:10 Urine Nitrite Negative (Negative) 05/30/22 20:10 Ur Leukocyte Esterase Negative (Negative) 05/30/22 20:10 05/31/22 05/31/22 05/31/22 05:50 04:54 03:08 POC Glucose 83 78 79 05/30/22 05/30/22 23:55 20:49 POC Glucose 107 H 135 H Electrocardiogram Date: 03/05/20 Findings: + NSR @ (at 94 w/ PVC's) Echocardiogram Date: 06/23/18 EF: 55% LV Function: normal RWMA: + none Other Findings: + LVH (mild) Valvular Disease: + no significant valvular disease Stress Test Date: 06/22/18 Type: nuclear Findings: + WNL Resting EF: 48% Resting RWMA: + none Valvular Disease: no significant valvular disease Cardiac Catheterization Date: 12/08/09 Findings: + pertinent finding ([id number]% @ bifurcation); no RCA, no LMA or no LCX Intervention: + none Other Testing Neck CTA (03/01/2022)-high grade stenosis @ origin of left vertebral artery;ICA's-mild plaque
[2022-05-31] MEDS: SODIUM CHLORIDE 0.9% 1000ML 1,000 ML IV SCH (08:48)
[2022-05-31] MEDS ORDERED: ROSUVASTATIN CALCIUM 5 MG TAB PO SCH (09:00)
[2022-05-31] MEDS ORDERED: CHOLECALCIFEROL 1,000 UNITS 25 MCG TAB PO SCH (09:00)
[2022-05-31] MEDS ORDERED: MULTIVITAMIN TAB PO SCH (09:00)
[2022-05-31] MEDS ORDERED: LOSARTAN POTASSIUM 25 MG TAB PO SCH (09:00)
[2022-05-31] MEDS ORDERED: LANTUS PER UNIT CHARGE SQ ONE (09:00)
[2022-05-31] MEDS ORDERED: ONDANSETRON INJ 2 MG/ML 2 ML VIAL IV PRN (12:58)
[2022-05-31] MEDS ORDERED: fentaNYL citrate 100 MCG/2 ML VIAL IV PRN (12:58)
[2022-05-31] MEDS ORDERED: HYDROmorphone INJ 2 MG/ML SYR/VIAL IV PRN (12:58)
[2022-05-31] MEDS ORDERED: ATROPINE SULFATE 0.1 MG/ML 10ML SYR IV PRN (12:58)
[2022-05-31] MEDS ORDERED: ePHEDrine sulfate 50 MG/ML AMP IV PRN (12:58)
--- NOTE | 2022-05-31 13:06 | History & Physical Bridge Note ---
Date of Service May 31, 2022 History & Physical Bridge Note I have examined the patient, reviewed the History & Physical and in the interval since the performance of the History & Physical I have noted the following changes of clinical significance: no changes noted Evacuation of hematoma right flank
[2022-05-31] MEDS ORDERED: fentaNYL citrate 100 MCG/2 ML VIAL ONE ×2 (13:26→14:05)
[2022-05-31] MEDS ORDERED: MIDAZOLAM HCL 1 MG/ML 2ML VIAL ONE (13:26)
[2022-05-31] MEDS ORDERED: GENTAMICIN SULFATE 40 MG/ML 2 ML VIAL ONE (13:29)
[2022-05-31] MEDS ORDERED: BUPIVACAINE/EPINEPHRINE 0.25% 1:200,000 30 ML VIAL ONE (13:29)
[2022-05-31] MEDS ORDERED: VANCOMYCIN HCL 1000MG/20ML VIAL ONE (13:30)
--- NOTE | 2022-05-31 13:31 | Hospitalist Progress Note ---
Date of Service May 31, 2022 Assessment & Plan (1) Post-op pain: Plan: Patient is a 52yo M with PMH of PE DVT/factor V Leiden mutation on Eliquis, history of a recent spinal stimulator placement, COPD, LORENA on CPAP, DM II, seizure disorder and other medical problems listed below who presents with back pain and found to have a post-op hematoma. Postop back pain/hematoma Recent spinal stimulator placement Patient on Eliquis for PE DVT/ hx factor V Leiden mutation as per records Dr. Thompson planning for OR today for evacuation of hematoma on the right flank at the area of the spinal cord stimulator battery Per ortho for pain control, wound care, anticoagulation and activities Monitor H&H, continue incentive spirometry, PT/OT when appropriate History of PE/DVT on Eliquis Resume Eliquis once bleeding risk is deemed to be minimal and negligible pending Orthopedics evaluation COPD, LORENA on CPAP, pulmonary status stable hypertension, elevated hyperlipidemia, on statin Rx DM2 insulin requiring, well-controlled as of recent hemoglobin A1c of 6.4 this month Hx TIA seizure disorder, stable on Keppra (dose recently increased to 1500 mg PO twice daily dosing after breakthrough seizure last month) past tobacco abuse Thank you for this consultation. We will follow the patient with you during their hospital stay. You can reach a member of the [facility] Hospitalist Team 25/03 via [facility]. Admission and Anticipated Discharge Date Admission Date: May 30, 2022 Supervising Physician Co-Signing Physician Notes Patient seen and examined independently. Agree with above assessment plan by Anahi Dorman PA-c Patient was comfortably resting on the bed; not in any distress. He is to undergo evacuation of hematoma today by orthospine. Eliquis should be resumed after bleeding risk is deemed to be minimal. Continue seizure medication and maintain seizure precautions Subjective Seen and examined in 384-2. Experiencing similar back pain and at site of hematoma. Due for OR later this morning. No fever, chills, headache, CP, SOB, N/V, abdominal pain, dysuria, diarrhea or constipation. Review of Systems Review of Systems: At least ten systems reviewed and negative except as noted in the HPI. Physical Exam Physical Exam: Gen: WD/WN, NAD, sitting in bed, A&Ox3 HEENT: Normocephalic, atraumatic, conjunctivae moist, sclerae anicteric, mucous membranes moist Lung: Clear to Auscultation bilaterally, no wheezes/rales/rhonchi Heart: Regular rate, regular rhythm, no murmurs, rubs, or gallops Abdomen: Soft, NT, ND +BS x 4 Extremities: + stimulator pocket R upper L spine area bulging. No drainage Skin: Warm, no rash Results & Data Results & Data ([facility]) Vital Signs (Past 12 Hours) Vital Signs Temp Pulse Resp BP Pulse Ox O2 Del Method 05/31/22 12:16 36.3 C L 77 18 162/96 H 98 Room Air 05/31/22 07:37 36.6 C 76 20 121/72 95 Room Air Laboratory Results Short CBC 05/30/22 Range/Units 14:09 WBC 6.41 (4.8-10.8) K/ul Hgb 16.4 (14.0-18.0) g/dl Hct 48.2 (40.1-51.0) % Plt Count 227 (130-400) K/uL BMP 05/30/22 14:09 Sodium 141 Potassium 4.4 Chloride 104 Carbon Dioxide 32 BUN 10 Creatinine 0.97 Glucose 136 H Calcium 9.8 Liver Function 05/30/22 Range/Units 14:09 Total Bilirubin 0.6 (0.2-1.0) mg/dl AST 13 (13-39) U/L ALT 11 (7-52) U/L Alkaline Phosphatase 71 (34-104) U/L Albumin 4.3 (3.4-5.0) gm/dl Urine 05/30/22 Range/Units 20:10 Urine Color Yellow Urine Appearance Clear (Clear) Urine pH 5.5 (4.5-7.5) Ur Specific [place] 1.042 H (1.000-1.030) Urine Protein Negative (Negative) Urine Glucose (UA) 3+ H (Negative)
[2022-05-31] MEDS ORDERED: ceFAZolin 330 MG/ML 1 GM VIAL ONE (13:43)
--- NOTE | 2022-05-31 14:00 | Pharmacy Report ---
Pharmacy Glycemic Short Note 2 - Date of Service May 31, 2022 - Glycemic Short BSG Results (Last 24 hours): 05/30/22 05/30/22 05/30/22 14:09 20:49 23:55 Glucose 136 H POC Glucose 135 H 107 H 05/31/22 05/31/22 05/31/22 03:08 04:54 05:50 Glucose POC Glucose 79 78 83 05/31/22 05/31/22 11:59 12:24 Glucose POC Glucose 74 74 OUTPATIENT ANTIDIABETIC REGIMEN: * Basaglar 50 units in morning and 20 units in evening * Novolog 21/04/20 + SSI * Jardiance * Ozempic ASSESSMENT: * Mr Saurav is a 52 y/o M with a PMH of T2DM who presents with a hematoma at surgery site. * Patient received Lantus 50 units at home prior to admission. * BSGs yesteray were 135-107 mg/dL and today are 83-74 mg/dL. * Lantus 25 units (50% of home dose) given due to NPO status prior to surgery today. Plan to give the rest of the daily dose later today with adjustments made based upon steroids received. * Novolog weight-based stress of 3 as this correlates with lantus 50 units daily. PLAN FOR INPATIENT GLYCEMIC CONTROL: * Hold outpatient oral diabetes medications * Basal insulin * Lantus 25 units SQ x 1 with adjustments made based upon steroids received during surgery * Bolus insulin * NovoLog per scale ACHS or Q6hrs while NPO * Goal Range: Low 110 mg/dL - High 140 mg/dL * Correction Factor: 15 mg/dL/unit * Nutritional / Prandial insulin per carb ratio of 1 unit per 5 grams CHO consumed
[2022-05-31] MEDS ORDERED: ROCURONIUM BROMIDE 10 MG/ML 5 ML VIAL IV ONE (14:14)
[2022-05-31] MEDS ORDERED: ONDANSETRON INJ 2 MG/ML 2 ML VIAL ONE (14:14)
[2022-05-31] MEDS ORDERED: PROPOFOL IV EMULSION 10 MG/ML 20 ML VIAL IV ONE (14:14)
[2022-05-31] MEDS ORDERED: LIDOCAINE 2% MPF LOCAL 5 ML VIAL INFIL ONE (14:14)
--- NOTE | 2022-05-31 14:16 | Operative Report ---
Post Operative Report Pre & Post Diagnosis Operation Date: 05/31/22 09:35 Preop diagnosis hematoma to the right flank at the site of the spinal cord stimulator battery pocket. Postop diagnosis: Same I identified the patient and participated in the time-out.: Yes Procedure Operation Date: 05/31/22 09:35 Actual Procedures Evacuation of hematoma on the right flank at the area of the spinal cord stimulator battery. Surgeon Carson Thompson, Inventory Administrator Payal Soto Estimated Blood Loss 10 Findings Consistent with Post-Op Diagnosis Specimens None Indications This is a 52-year-old male who presents with marked swelling over the right flank in the area of the spinal cord stimulator battery placement. She approximately 1 week postop and symptoms are consistent with hematoma. Description of Procedure Patient was met with identified and operative procedure explained. Patient was then taken to the operative suite underwent intubation placed in prone position the [place]wood table top [place] frame. All bony prominences well-padded eyes inspected to ensure no external pressure placed upon the. This point the right flank was prepped and draped in normal sterile fashion. The battery site incision was then opened and a large amounts of clotted blood was identified and evacuated. Several liters of antibiotic solution were then irrigated throughout the pocket. The battery was then reinserted and it was closed with subcutaneous Vicryl and 4 Monocryl for final skin closure. Steri-Strip sterile dressings placed. Patient waken taken to recovery in stable condition. Please note Payal Soto was present out the entire procedure involved in patient positioning complex portion of the surgery and final skin closure. I attest to the content of the Intraoperative Record and any orders documented therein. Any exceptions are noted below.
[2022-05-31] MEDS ORDERED: FLOSEAL HEMOSTATIC MATRIX 10ML TOP ONE (14:23)
--- NOTE | 2022-05-31 15:45 | Anesthesiology Progress Note ---
Date of Service May 31, 2022 Anesthesia Post Procedure Vital Signs Vital Signs: Temp Pulse Pulse Resp BP BP Pulse Ox 05/31/22 15:20 36.0 C L 78 14 101/64 97 05/31/22 15:10 79 16 124/67 97 05/31/22 15:00 80 16 109/71 95 05/31/22 14:50 80 16 122/69 99 05/31/22 14:40 75 12 118/74 100 05/31/22 14:30 36.1 C L 76 12 125/73 100 05/31/22 12:16 36.3 C L 77 18 162/96 H 98 05/31/22 07:37 36.6 C 76 20 121/72 95 05/30/22 20:38 36.6 C 90 18 160/95 H 97 05/30/22 18:39 80 20 141/87 H 96 05/30/22 16:37 82 20 135/80 98 O2 Del Method O2 Flow Rate 05/31/22 15:20 Room Air 05/31/22 15:10 Room Air 05/31/22 15:00 Room Air 05/31/22 14:50 Room Air 05/31/22 14:40 Oxymask 5 05/31/22 14:30 Oxymask 5 05/31/22 12:16 Room Air 05/31/22 07:37 Room Air 05/30/22 20:38 Room Air 05/30/22 18:39 Room Air 05/30/22 16:37 Room Air Pain Intensity Right Back: Pain Intensity: 10 Transfer of Care Handoff Completed per policy Notes Mental Status: alert / awake / arousable and participated in evaluation Patient Amnestic to Procedure: Yes Nausea / Vomiting: adequately controlled Pain: adequately controlled Airway Patency, RR, SpO2: stable & adequate BP & HR: stable & adequate Hydration State: stable & adequate Anesthetic Complications: no major complications apparent and Pt Satisfied with anesthetic care
[2022-06-01] MEDS ORDERED: LANTUS PER UNIT CHARGE SQ SCH (09:00)
--- NOTE | 2022-06-04 11:12 | Discharge Summary ---
Date of Service June 04, 2022 Admission HPI Per Admitting Provider This is a 52-year-old male well-known to me this approximately 1 week status post dorsal column stimulator placement. He is developed a significant hematoma over the battery site creating significant pain and swelling. Subsequent is here for evaluation and evacuation of hematoma. Admission Exam (Per Admitting) Constitutional well developed Eyes normal visual cervantes by confrontation ENMT external ear and nose normal, oropharynx normal Neck normal visual inspection Respiratory normal respiratory effort Cardiovascular Extremities: normal capillary refill Gastrointestinal (Abdomen) normal bowel sounds, soft, nontender, no hepatosplenomegaly Musculoskeletal no cyanosis or clubbing, extremities motor strength 5/5 Extremities: extremities normal to inspection and strength 5/5 throughout Skin Significant ecchymosis and edema noted over the right upper buttock/flank area at the incision site of spinal cord stim battery. No purulent drainage noted. No erythema. Neurologic normal touch/pain/proprioception and moves all extremities Psychiatric A+Ox3, euthymic affect Eye Contact: good eye contact Speech: normal rate/rhythm/volume of speech Discharge Data Consultations 05/30/22 16:19 ED Decision to Admit Stat 05/30/22 21:32 Consult Internal Medicine Routine Procedures Performed Operation Date: 05/31/22 09:35 Actual Procedures p Evacuation of Hematoma Right Flank(Right) - Carson Thompson DO Hospital Course (1) Postoperative hematoma: Patient had an uneventful postoperative course. He was discharged home same day as evacuation of hematoma from right flank. Discharge Instructions ACTIVITY RECOMMENDATIONS: SELF CARE INSTRUCTIONS AFTER A LAMINECTOMY 1. No prolonged sitting (less than 30 minutes for the first 3 weeks after surgery). 2. No bending, lifting more than 5 pounds, or twisting (roll like a log when turning in bed). 3. You may shower 3 days after surgery if no drainage from wound. Thoroughly dry wound. Do not soak in the tub. 4. Please walk as much as you can for exercise. Gradually increase the distance that you walk as your endurance increases. 5. You may drive in 7-10 days if you are comfortable and no longer requiring pain medications. SPECIAL CARE INSTRUCTIONS: VERY IMPORTANT TO READ AND REVIEW A. Your surgical incision has been closed with a cosmetic suture under the skin that will dissolve in about 6 weeks. In 14 days, you can use a pair of clean scissors and cut the suture that is left outside of the skin at the ends of your incision. B. Complications are uncommon, but please contact us if you have any signs or symptoms of: 1. wound infection (fever higher than 102.5 degrees F, redness, separation of wound, drainage, or increasing pain from the incision) 2. blood clots in legs (pain, swelling, redness and warmth in legs) 3. urinary tract infection (fever higher than 102.5 degrees, burning upon urination or increased frequency of urination) 4. nerve problems (inability to walk on your toes or heels, numbness, loss of bowel or bladder control) 5. any other symptoms that concern you. C. Please call the office at if you have any concerns or questions about your operation or recovery. MANAGING PAIN AFTER SPINAL SURGERY 1. Narcotic medication is intended for short-term use and will be provided for surgical pain. Surgical pain usually lasts for a period of 4-6 weeks. Narcotic medication includes Percocet, Vicodin, Darvocet, Tylenol #3 or Lortab. 2. Longer-term pain is more appropriately treated with non-narcotic medication such as Tylenol ES. 3. Muscle spasm is not appropriately treated with narcotics. Muscle relaxers such as Soma, Flexeril or Skelaxin can be used along with Tylenol ES. 4. Remember that we all live with some "aches and pains". This is not unusual or uncommon after an injury or as we get older. 5. We will provide appropriate medication within the normal guidelines of their prescribed use. We will also be very cautious and aware of potential abuse and extended duration of patients' medication needs. 6. Please allow 2-3 days to process refills. Prescriptions will not be mailed but must be picked up at the office. FOLLOW UP VISIT: Keep your scheduled follow-up appointment. Any questions, please call the office at .
== END 2022-05-31 17:29 | disposition home or self-care (01) ==
LOC: 3N 12:24 → ED 12:24 → SUPCPDRO 17:49 → 3N 20:19